=== PATIENT | female | born 1955 | race Caucasian/White ===

== ENCOUNTER 2017-01-11 14:12 | Emergency (ER) | payer MEDICARE ==
--- NOTE | ~2017-01-11 | CR72 ---
[facility] A Service of [facility] RADIOLOGY TEXT RESULTS PATIENT: TYLER ATWOOD LOCATION: [facility] : 53 UNIT #: [id number] AGE: [address]: Jair Selby MD SEX: F ORDER DR: [id number] [facility] [address] [place], [place] [address] [id number] E MR#: [id number] Acc #: [id number] NAME: TYLER ATWOOD : 1955 SEX: F STUDY DATE/TIME: 01/11/2017 12:53 UNIT: DAVIDE ROOM: STUDY DESCRIPTION: CR Chest Single View Portable Attending Physician: Jair Selby M.D. Ordering Physician: Jair Selby M.D. Primary Care Physician: Beatris Garcia M.D. MEDICAL IMAGING REPORT This report is preliminary unless electronic signature is present EXAM AP radiograph of the chest, 01/11/2017. HISTORY Cough and dyspnea. Prior history of breast cancer, right mastectomy, diabetes. Cough and short of air for 2 days. TECHNIQUE AP radiograph of the chest is presented. COMPARISON STUDIES 07/20/2016 FINDINGS No acute-appearing bony abnormality. Mild cardiac enlargement. The lungs are moderately well inflated. Pulmonary vasculature is abnormally prominent and mildly indistinct. There are increased linear interstitial opacities, predominantly in the axg-jf-pjpss lung zones bilaterally with patchy airspace densities at the bilateral lung bases. Suggestion of small left pleural effusion. Findings suggest mild to mild/moderate cardiogenic pulmonary edema with interstitial airspace and left pleural space involvement. Followup to radiographic resolution recommended. Dictated by... Carlos Aguillon M.D. THIS IS AN ELECTRONICALLY VERIFIED REPORT Carlos Aguillon M.D. at 01/11/2017 5:41 PM PARIS/taj [facility] A Service of [facility] RADIOLOGY TEXT RESULTS PATIENT: TYLER ATWOOD LOCATION: [facility] : 53 UNIT #: [id number] AGE: [address]: Jair Selby MD SEX: F ORDER DR: TD: 01/11/2017 15:57 JOB #: [id number] MEDICAL IMAGING REPORT COPY
--- NOTE | ~2017-01-11 | EKG ---
PATIENT: TYLER ATWOOD UNIT #: [id number] Ventricular Rate: 74 BPM Atrial Rate: 74 BPM P-R Interval: 144 ms QRS Duration: 104 ms Q-T Interval: 420 ms QTC Calculation(Bezet): 466 ms P [place]: 29 degrees Calculated R [place]: 37 degrees Calculated T [place]: 39 degrees Diagnosis Line: Normal sinus rhythm Diagnosis Line: Minimal voltage criteria for LVH, may be normal Diagnosis Line: variant Diagnosis Line: Borderline ECG Diagnosis Line: When compared with ECG of 12-DEC-2016 18:10, Diagnosis Line: No significant change was found Diagnosis Line: Confirmed by HARSHA SNOW MD ([id number]) on Diagnosis Line: 01/11/2017 4:16:15 PM INTERPRETING MD: EDY SALCEDO
[2017-01-11 13:17] LABS: BASOPHIL# 0.1 X10e3 (0-0.3); BASOPHIL% 0.8 % (0-2.5); EOSINOPHIL# 0.2 X10e3 (0-0.7); EOSINOPHIL% 1.9 % (0.0-7.0); HEMATOCRIT 35.8 % (35.0-45.0); LYMPHOCYTE% 24.8 % (17.0-45.0); MEAN CELL VOLUME 85.7 FL (83-96); MEAN CORPUSCULAR HEMOGLOBIN 28.7 PG (28-34); MEAN CORPUSCULAR HGB CONC 33.5 g/dL (30-36); MEAN PLATELET VOLUME 8.4 FL (6.5-11.5); MONOCYTE# 0.3 X10e3 (0-1.0); MONOCYTE% 3.8 % (3.0-12.0); NEUTROPHIL# 5.6 X10e3 (1.5-7.1); NEUTROPHIL% 68.7 % (40-75); PLATELET COUNT 256 X10e3 (140-420); RED BLOOD COUNT 4.17 X10e (3.90-5.30); RED CELL DISTRIBUTION WIDTH 13.7 % (11.0-15.5); WHITE BLOOD COUNT 8.1 X10e3 (4.0-10.5)
[2017-01-11 13:22] LABS: DIFF IND NO
[2017-01-11 13:26] LABS: POC - CKMB 1.3 ng/mL (0.0-7.9); POC - TROPONIN <0.05 ng/mL (<=0.05)
[2017-01-11 13:44] LABS: ALBUMIN SERUM 2.8 g/dL (3.5-5.0); ALKALINE PHOSPHATASE 72 U/L (32-92); ALT (SGPT) 12 U/L (10-40); AST (SGOT) 13 U/L (10-42); BILIRUBIN, DIRECT 0.1 mg/dL (0.0-0.2); BILIRUBIN,INDIRECT 0.4 mg/dL (0.0-0.9); BILIRUBIN,TOTAL 0.5 mg/dL (0.2-2.0); BLOOD UREA NITROGEN 22 mg/dL (9-23); CALCIUM SERUM 8.8 mg/dL (8.4-10.2); CARBON DIOXIDE 27 mmol/L (22-31); CHLORIDE 100 mmol/L (100-111); CREATININE SERUM 0.8 mg/dL (0.6-1.4); GLOM FILT RATE Estimated ABOVE60 mL/min (>60); GLUCOSE FASTING 434 mg/dL (70-110); PROTEIN TOTAL SERUM 5.9 g/dL (6.0-8.3); SODIUM 134 mmol/L (135-145)
[~2017-01-11 14:12] MED LIST: ACETAMINOPHEN650 M3 PO; ACIDOPHILUS1 CA1 PO; ALDACTONE25 MG PO; ANASTROZOLE1 MG PO; ANTI-DIARRHEAL2 M1 PO; ASPIRIN EC81 M1 PO; ASPIRIN PO; ASPIRIN81 MG PO; BACTRIM DS TABL1 TA1 PO; BACTROBAN22 GM TOP; BP MED; CLEOCIN PO; CLOPIDOGREL75 MG PO; DAKIN'S MODIF1000 ML TOP; DESYREL50 MG PO; DIFLUCAN200 MG PO; FERRO-TIME325 MG PO; FLEXERIL10 M1 PO; GLUCOPHAGE XR500 MG PO; GLUCOPHAGE500 M1 PO; GLUCOTROL PO; HUMALOG100 U/M1 SUBQ; HUMALOG100 U/ML SUBQ; HYDROCODON-ACE1 EAC7 PO; IBUPROFEN400 MG PO; ILOTYCIN1 GM OD; IRON SUPPLEMENT1 TAB PO; IRON325 ( 65 ) PO; KEFLEX500 M1 PO; KEFLEX500 MG PO; LANTUS100 U/ML SUBQ; LEVAQUIN750 MG PO; LEVEMIR FL100 UNIT/1 SUBQ; LEVO-T25 MCG PO; LEVOTHYROXINE25 MC1 PO; LIPITOR PO; LIPITOR20 MG PO; LIPITOR40 MG PO; LIPITOR80 MG PO; LISINOPRIL10 MG PO; LISINOPRIL20 MG PO; LOTRISONE CREAM45 GM TOP; MED FOR HERPES; METFORMIN HCL500 M3 PO; MEVACOR40 MG PO; NAPROSYN500 MG PO; NORCO 5/325 TAB1 TAB PO; NORCO1 TAB 10/3 PO; NOVOLOG FL100 UNIT/1 SUBQ; NOVOLOG100 U/ML SUBQ; NOVOLOG100 UNITS/; NOVOLOG100 UNITS/ SUBQ; OMNICEF300 M1 PO; PRINIVIL20 M1 PO; PROTONIX PO; SIMVASTATIN20 MG PO; SYNTHROID25 MCG PO; THYROID MED; TYLENOL #3 PO; VICODIN 5/1 TAB 5/50 PO; VIMPAT100 MG PO; ZANTAC150 M1 PO; ZANTAC150 MG PO; ZOFRAN ODT4 MG PO
== END 2017-01-11 15:00 | disposition home or self-care (01) ==
LOC: CED 14:12
PROVIDERS: Emergency Medicine
DX: I10 Essential (primary) hypertension (principal); R73.9 Hyperglycemia, unspecified; Z88.5 Allergy status to narcotic agent; Z88.1 Allergy status to other antibiotic agents; Z79.4 Long term (current) use of insulin; Z79.899 Other long term (current) drug therapy
CPT/HCPCS: 36415; 71010; 80048; 80076; 82553; 83880; 84484; 85025; 93005; 96374; 96375; 99284; J1940

== ENCOUNTER 2017-01-16 01:19 | Inpatient (IN) | payer MEDICARE ==
--- NOTE | ~2017-01-16 | EKG ---
PATIENT: TYLER ATWOOD UNIT #: [id number] Ventricular Rate: 55 BPM Atrial Rate: 55 BPM P-R Interval: 152 ms QRS Duration: 100 ms Q-T Interval: 468 ms QTC Calculation(Bezet): 447 ms P [place]: 13 degrees Calculated R [place]: 51 degrees Calculated T [place]: 56 degrees Diagnosis Line: Sinus bradycardia Diagnosis Line: Otherwise normal ECG Diagnosis Line: When compared with ECG of 24-JAN-2017 10:15, Diagnosis Line: No significant change was found Diagnosis Line: Confirmed by ELIDA GRIMALDO MD ([id number]) on 01/28/2017 Diagnosis Line: 7:32:08 AM INTERPRETING MD: RE SALCEDO
--- NOTE | ~2017-01-16 | US77 ---
[facility] A Service of [facility] RADIOLOGY TEXT RESULTS PATIENT: TYLER ATWOOD LOCATION: [facility] 318- : 53 UNIT #: [id number] AGE: [address]: Igor Brojas MD SEX: F ORDER DR: [id number] [place] [id number] [facility] [place], [place] [address] [id number] I MR#: [id number] Acc #: [id number] NAME: TYLER ATWOOD : 1955 SEX: F STUDY DATE/TIME: 01/20/2017 10:33 UNIT: [facility] PCU ROOM: [facility] STUDY DESCRIPTION: US Kidney Bilateral Complete Attending Physician: Igor Borjas M.D. Ordering Physician: Jaleel Ovalle M.D. Primary Care Physician: Beatris Garcia M.D. MEDICAL IMAGING REPORT This report is preliminary unless electronic signature is present EXAM Renal ultrasound, bilateral, 01/20/2017. INDICATION Renal insufficiency. Acute renal injury. GFR 25, creatinine 2.1, BUN 47. TECHNIQUE Sonographic imaging of the kidneys was performed bilaterally. COMPARISON STUDIES There are no comparisons. FINDINGS The right kidney measures 13.6 x 5.7 x 7.3 cm and the left 12.8 x 6.3 x 6.1 cm. No shadowing stone or hydronephrosis on either side. Limited sonographic window to evaluate the left kidney. Bladder unremarkable. IMPRESSION No hydronephrosis or shadowing stone on either side. Bladder unremarkable. Dictated by... Alex Messer M.D. THIS IS AN ELECTRONICALLY VERIFIED REPORT Alex Messer M.D. at 01/21/2017 7:34 AM ALAM/taj TD: 01/20/2017 16:35 JOB #: [id number] MEDICAL IMAGING REPORT [facility] A Service of [facility] RADIOLOGY TEXT RESULTS PATIENT: TYLER ATWOOD LOCATION: [facility] 318- : 53 UNIT #: [id number] AGE: [address]: Igor Borjas MD SEX: F ORDER DR: CARLY
--- NOTE | ~2017-01-16 | DS ---
Unit #: [id number] #: [id number] Patient: TYLER ATWOOD [id number] [address] [place], [place] [address] [id number] I MR#: [id number] NAME: TYLER ATWOOD ROOM: 57 Age: 61 Sex: F Admission Date: 01/16/2017 : 1955 Discharge Date: Attending Physician: Igor Borjas M.D. Primary Care Physician: Beatris Garcia M.D. DISCHARGE SUMMARY ADDENDUM PRIMARY CARE PHYSICIAN Dr. Chandni Garcia. WORKING DIAGNOSIS Hypoxic respiratory failure continued with oxygen support likely due to chronic obstructive pulmonary disease exacerbation and tracheobronchitis as well as cardiomyopathy. HOSPITAL COURSE Since the time of the transfer care, the patient has had left heart catheterization by Dr. Ovalle with 2 drug-eluting stents placed for an ischemic cardiomyopathy. The patient's ejection fraction is noted to be 38%. The patient will be continued on dual antiplatelet with both aspirin and Plavix as well as statin, nitrate, beta jennifer. The patient is a not candidate for ASHWIN ARB at this time due to her kidney function. Since her heart cath, her kidney function has stabilized. At the time of discharge, her creatinine was 2.3. She was cleared by Cardiology, Nephrology, and Pulmonary to be discharged home. The patient will be discharged home with her daughter in stable condition. We will be asking case work aide to arrange for outpatient cardiac rehab. The patient will have A home health to have any nursing needs and for diabetes education. DISCHARGE DIET Heart healthy with consistent carb per [place] [employer] Recommendations. ACTIVITIES Resume activity as was prior to hospitalization with ambulating everyday as tolerated. We are assessing to see if patient needs and will be setting up if needed for oxygen home usage. FOLLOWUP To followup with primary care physician within 1 to 2 weeks. Follow up with Dr. Ovalle on Tuesday02/21/2017 at 2:30. Follow up with Dr. Del Castillo of Nephrology to arrange the outpatient visit. Follow up with primary care physician within 1 to 2 weeks with a repeat BMP to assess her kidney function. DISCHARGE MEDICATIONS Include Vimpat 100 mg orally b.i.d., Glucophage she can resume this on Unit #: [id number] #: [id number] Patient: TYLER ATWOOD 01/28/2017 of 500 mg orally b.i.d., loperamide 2 mg orally b.i.d. as needed for diarrhea, Lopressor tartrate 50 mg orally b.i.d., Lasix 40 mg orally daily per Nephrology and Cardiology recommendation, atorvastatin 80 mg orally at bedtime, hydralazine 50 mg orally b.i.d. She is to stop the lisinopril 20 mg orally daily. Her Humalog is changed to 25 units subcutaneously with meal as well as a low-dose sliding scale insulin. She is to continue with Lantus 55 units subcutaneously at bedtime, iron supplement 325 mg orally daily, Zantac 150 mg orally b.i.d., aspirin 81 mg orally daily, Plavix 75 mg orally daily, Glucotrol 5 mg orally b.i.d. with meals, levothyroxine 25 mcg orally daily, Imdur extended release 30 mg orally daily. The patient had a random urine culture obtained which had grown Staph coagulase sensitive to vancomycin, one time dose was given, given her current kidney function, presumed that this will be able to fully treat her Staph coagulase UTI. Dictated by... Varsha Antonio PA-C for Chidi Bello/deana TD: 01/27/2017 08:29 JOB #: [id number] DISCHARGE SUMMARY Page 1 of 1 X X DISCHARGE SUMMARY
--- NOTE | ~2017-01-16 | CR72 ---
[facility] A Service of [facility] RADIOLOGY TEXT RESULTS PATIENT: TYLER ATWOOD LOCATION: [facility] 318-01 : 53 UNIT #: [id number] AGE: [address]: Bess Bhatti MD SEX: F ORDER DR: [id number] [facility] [address] [place], [place] [address] [id number] E MR#: [id number] Acc #: [id number] NAME: TYLER ATWOOD : 1955 SEX: F STUDY DATE/TIME: 01/16/2017 1:18 UNIT: [facility] ROOM: STUDY DESCRIPTION: CR Chest Single View Portable Attending Physician: Dulce Maria Fox M.D. Ordering Physician: Dulce Maria Fox M.D. Primary Care Physician: Beatris Garcia M.D. MEDICAL IMAGING REPORT This report is preliminary unless electronic signature is present EXAM AP portable chest, 01/16/2017 at 01:18. HISTORY Shortness of breath today. COMPARISON STUDIES AP portable chest, 01/11/2017. FINDINGS Heart size is stable. Interstitial thickening is seen throughout both lungs, greatest in the bibasilar distribution, similar to the previous exam. Questionable trace left pleural effusion. No visible pneumothorax. No acute osseous abnormality. IMPRESSION 1. Interstitial changes throughout both lungs, greatest in a bibasilar distribution. Findings are nonspecific; could represent changes of interstitial edema, fibrosis, or atypical interstitial pneumonia. Findings to not appear appreciably changed from the previous exam. 2. Probable trace left pleural effusions, unchanged. Dictated by... Marva Brower M.D. THIS IS AN ELECTRONICALLY VERIFIED REPORT Marva Brower M.D. at 01/16/2017 9:57 PM DAMIEN/gabriela TD: 01/16/2017 11:38 JOB #: [id number] [facility] A Service [facility] RADIOLOGY TEXT RESULTS PATIENT: TYLER ATWOOD [id number] [birth year] UNIT #: [id number] AGE: [address]: Bess Bhatti MD SEX: F ORDER DR: MEDICAL IMAGING REPORT COPY
--- NOTE | ~2017-01-16 | A ---
[facility] DATE: 01/28/17 Patient: TYLER ATWOOD Physician: HARVINDER Address: [address] [place] [address] Room/Bed: [address] [place] [address], Zip: [place] [address] Admit Date: 01/16/17 Date of : 51 Height: 5 2 Weight: 182 83 NUTRITIONAL ASSESSMENT: REASON: LOS ASSESSMENT PT IS 61 Y.O. FEMALE ADMITTED FOR CHF, PNA, POSS SEPSIS PMH: PRIOR CVA, HTN, HLD, HYPOTHYROIDISM, UNCONTROLLED DM, DEMENTIA, HX OF BREAST CA, GERD, SEIZURE DISORDER Anthropometrics: 5'2", WT: 182# (83 KG), BMI: 33.3 Labs: GLU: 185, BUN: 54, CREAT: 2.0, ALB: 2.4, ALT: 55, A1c: 14.0 (REFLECTS POOR GLUCOSE MANAGEMENT), GFR: 25.9 Meds: LIPITOR, FUROSEMIDE, ZOFRAN, NOVOLOG, PEPCID, MIRALAX, LANTUS, FERROUS GLUCONATE, GLUCOTROL, SYNTHROID I/O & Bowel function: 1600/307 Skin Integrity: BLE TRACE EDEMA Estimated Nutrition Needs: N/A Assessment: CHART REVIEWED AND EVENTS NOTED. PT SEEN FOR LENGTH OF STAY ASSESSMENT (10 DAYS). PT REPORTS GOOD PO INTAKE AND APPETITE, NO C/O N/V/D. PT DENIES ANY CHEWING OR SWALLOWING DIFFICULTIES. PT DOES C/O SOB AT THIS TIME. PT DENIED ANY RECENT WEIGHT LOSS. THIS RD ENCOURAGED OVERALL HEALTHY EATING PATTERNS, PT AGREED. RD ALSO PROVIDED WRITTEN CC+HH DIET EDUCATION FOR PT TO TAKE HOME. PT REPORTED NO DIET QUESTIONS AT THIS TIME. RD TO REMAIN AVAILABLE. Dx: IMPAIRED GLYCEMIC CONTROL R/T PMH AEB ELEVATED BLOOD SUGAR LEVELS, ELEVATED A1c. Intervention: 1. CC+HH DIET 2. RD PROVIDED DIET EDUCATION Monitoring, Evaluation and Goals: 1. PO INTAKE; CONSUME >50% PO INTAKE W/NO C/O N/V/D 2. WEIGHTS; PROMOTE HEALTHY WEIGHT LOSS 3. LABS; WNL MONITOR: -PO INTAKE/APPETITE -EDUCATION NEEDS [facility] DATE: 01/28/17 Patient: TYLER ATWOOD Physician: HARVINDER Address: [address] [place] [address] Room/Bed: [address] [place] [address], Zip: [place] [address] Admit Date: 01/16/17 Date of : [birth year] Height: 5 2 Weight: 182 83 -LABS -WEIGHTS Recommendations: 1. CONTINUE TO ENCOURAGE COMPLIANCE OF CURRENT DIET ORDER RD WILL F/U PER PROTOCOL PT IS MILDLY COMPROMISED Respectfully, KATELIN ARAGON MS, RD, LD [employer] and Nutritional Services [facility] cc: client file
--- NOTE | ~2017-01-16 | CT71 ---
[facility] A Service of [facility] RADIOLOGY TEXT RESULTS PATIENT: TYLER ATWOOD LOCATION: [facility] 571-01 : 53 UNIT #: [id number] AGE: [address]: Igor Borjas MD SEX: F ORDER DR: [id number] [facility] [address] [place], [place] [address] [id number] I MR#: [id number] #: [id number] NAME: TYLER ATWOOD : 1955 SEX: F STUDY DATE/TIME: 01/26/2017 18:45 UNIT: [facility] ROOM: 1 STUDY DESCRIPTION: CT Head Wo Contrast Attending Physician: Igor Borjas M.D. Ordering Physician: Igor Borjas M.D. Primary Care Physician: Beatris Garcia M.D. MEDICAL IMAGING REPORT This report is preliminary unless electronic signature is present EXAM CT head, 01/26/2017 HISTORY Mental status change. Confusion today. Prior hernia CVA 2013. Depression, breast cancer, right mastectomy, gallbladder. Bladder repair. TECHNIQUE This CT exam was performed with one or more of the following radiation dose reduction techniques: automatic exposure control, adjustment of mA and/or kV according to patient size, and iterative reconstruction. FINDINGS CT head performed skull base through vertex without intravenous contrast. Comparison to MRI dated 11/23/[address] head 10/12/2016. The brainstem is unremarkable. Cerebellum and cerebral hemispheres show encephalomalacic change in the medial left temporal lobe extending posteriorly into the left occipital lobe. No change in extent or appearance from October 2016 and consistent with old left posterior cerebral artery infarct. No hemorrhage. No indication of acute cortical ischemia. Periventricular and deep white matter tract hypodensities likely reflecting sequelae of chronic microvascular ischemia. No change. The midline structures are nondisplaced. In the interval from the prior examination, the patient has developed what is a now chronic-appearing lacunar infarct in the inferior right putamen. It measures about 4 mm in diameter. Midline structures are nondisplaced. Ventricles, cisterns and sulci outside area of encephalomalacia described above appear mildly enlarged consistent with mild generalized atrophy. Stable appearance. There are cavernous carotid and distal vertebral arterial calcifications. The intraorbital soft tissues are unremarkable. There is no intracranial mass effect or suspicious fluid collection. The visualized paranasal sinuses and mastoid air cells are clear. No acute-appearing bony STS. [facility] A Service of [facility] RADIOLOGY TEXT RESULTS PATIENT: TYLER ATWOOD LOCATION: [facility] : 53 UNIT #: [id number] AGE: [address]: Igor Borjas MD SEX: F ORDER DR: abnormality. Some images are degraded by streak/motion artifact. IMPRESSION 1. Study is mildly degraded by streak/motion artifact. No acute abnormality is seen in the brain. If the patient has ongoing neurologic symptoms, consider followup imaging, preferably with MRI if the patient remains a candidate for MRI. 2. Chronic sequelae of prior vascular insult in left posterior cerebral artery distribution with encephalomalacic change involving left temporal and occipital lobes as described above. No change from prior study. 3. In the interval from October 2016 the patient has developed what is now a chronic-appearing 4 mm lacunar infarct in the inferior right putamen. No acute-appearing basal ganglia abnormality. 4. Stable mild generalized atrophy. 5. Stable periventricular and deep white matter tract probable sequelae of chronic microvascular ischemia. See remainder of details in body report above. Dictated by... Carlos Aguillon M.D. THIS IS AN ELECTRONICALLY VERIFIED REPORT Carlos Aguillon M.D. at 01/28/2017 8:06 PM PARIS/britton TD: 01/27/2017 03:23 JOB #: [id number] MEDICAL IMAGING REPORT Page 1 of 1 COPY
--- NOTE | ~2017-01-16 | ST ---
Unit #: [id number] #: [id number] Patient: TYLER ATWOOD [id number] [address] [address] [id number] I MR#: [id number] NAME: TYLER ATWOOD : 1955 SEX: F STUDY DATE/TIME: 01/20/2017 UNIT: C3A PCU ROOM: 318 STUDY DESCRIPTION: Stress Test Attending Physician: Igor Borjas M.D. Primary Care Physician: Beatris Gacria M.D. CARDIOLOGY REPORT EXAM Dobutamine Nuclear Stress Test REASON FOR TEST Chest pain. DESCRIPTION Baseline EKG shows normal sinus rhythm, rate of 68 beats per minute. Nonspecific T wave abnormalities noted in the inferior leads. A total of 29.68 mL of dobutamine was given IV per protocol with a resting heart rate of 68 beats/minute and a peak heart rate of 127 beats/minute. There were no ST or T wave changes noted during the infusion. During the infusion, the patient did complain of some mild chest discomfort as well as shortness of breath. These symptoms resolved in the recovery period. A rare PVC was noted during the infusion. Otherwise, no arrhythmias. The test was stopped after approximately 28 minutes. Patient only achieved 80% of the maximum predicted heart rate. She had also received maximum dose of dobutamine 40 mcg/kg/minute as well as 0.8 mg of atropine IV and we were still unable to achieve target heart rate. IMPRESSION 1. Negative EKG portion of dobutamine Cardiolite. 2. No ST or T wave changes suggestive of ischemia during the infusion. 3. Rare PVC was noted, otherwise no arrhythmias. 4. Patient did complain of mild chest discomfort as well as shortness of breath during the infusion. These symptoms resolved immediately in recovery period. Please note - total test time was approximately 28 minutes. She was om maximum dosing of dobutamine at 40 mcg/kg/minute and had already received 0.8 mg of IV atropine. With still inability to meet target heart rate, 80% was achieved. Dr. Ovalle was notified and stated it was okay to go ahead and inject at the 80%. 5. Please correlate with nuclear imaging. This was explained to the patient and she was agreeable. Please note - she also had significant anxiety throughout the testing period. Unit #: [id number] #: [id number] Patient: TYLER ATWOOD Dictated by... Ginger Miller A.P.R.N. for Chidi Davalos/df TD: 01/20/2017 11:46 JOB #: [id number] CARDIOLOGY REPORT X Ginger Miller APRN CARDIOLOGY REPORT
--- NOTE | ~2017-01-16 | CO ---
Unit #: [id number] #: [id number] Patient: TYLER ATWOOD [id number] [address] [place], [place] [address] [id number] I MR#: [id number] NAME: TYLER ATWOOD ROOM: 318 Age: 61 Sex: F Admission Date: 01/16/2017 : 1955 Attending Physician: Igor Borjas M.D. Primary Care Physician: Beatris Garcia M.D. Consultation Date: 01/20/2017 CONSULTATION REPORT REASON FOR CONSULTATION Elevated creatinine level. HISTORY OF PRESENT ILLNESS The patient is a 61-year-old white female with known history of hypertension, type 2 diabetes, history of left CVA with right hemiparesis, came in with shortness of breath and admitted for a possible pneumonia, for which the patient was started on vancomycin. At one point, vancomycin level was noted to be 30. The patient also noted to be on Prinivil. The patient's creatinine level on admission was 0.7, and is elevated to 2.1 today. The patient is also being seen by Cardiology and heart catheterization is being contemplated for cardiac workup. The patient has not noted to be on any NSAIDs or recent IV contrast. PAST MEDICAL HISTORY Significant for coronary artery disease nonobstructive in 2014, ejection fraction was 55% with RVSP of 27 mmHg. History of type 2 diabetes, history of breast cancer, hypertension, hypothyroidism, history of seizure disorder. PAST SURGICAL HISTORY Significant for I and D of gluteal abscess, history of skin grafting, status post cholecystectomy, right mastectomy with breast surgery. ALLERGIES As per H and P. MEDICATIONS Include Prinivil 20 mg daily, Aldactone 25 mg daily. Previously Glucophage, Zantac, Vimpat for seizure disorder, Glucotrol, Lantus 55 units at bedtime, and Plavix 75 mg daily. FAMILY HISTORY Significant for hypertension, type 2 diabetes, coronary artery disease. No history of end-stage renal disease. SOCIAL HISTORY Lives at home. Does not drink or smoke. REVIEW OF SYSTEMS CVS: As above. RESPIRATORY: As above. GI: No diarrhea. No vomiting. : No hematuria. No dysuria. Unit #: [id number] #: [id number] Patient: TYLER ATWOOD PHYSICAL EXAMINATION GENERAL: The patient is awake and has mild dysphagia. VITAL SIGNS: Temperature is 97.9, heart rate is 77 per minute, the blood pressure is 144/76, saturation 95% on admission. HEENT: Head is atraumatic. Extraocular movements are intact. Sclerae are anicteric. NECK: Supple. There is no elevation of the JVD. CHEST: Basal crackles in the bases. HEART: S1, S2 audible. There is no S3 no S4. ABDOMEN: Soft. There is no organomegaly. No guarding. No rigidity. No rebound tenderness. EXTREMITIES: There is 1+ edema. TRIPE FINISHER: Right hemiparesis. Cerebellar system is intact. DIAGNOSTIC STUDIES LABORATORY RESULTS: Significant for sodium 137, potassium 4.5, chloride 103, CO2 of 26, glucose 241, BUN 31, creatinine 1.9 yesterday and 2.1 today. The WBC is 12, H and H is 9.9 and 30.6 with a platelet count of 300. The urinalysis is 3+ protein with 2 to 5 wbc, rbc. Urine eosinophils are negative. IMPRESSION 1. Acute kidney injury, possible vancomycin toxicity exacerbated by concomitant Prinivil. Vancomycin has been discontinued. We will request to refrain from nephrotoxics. Check for diabetic nephropathy and quantitate proteinuria. Request renal ultrasound for any evidence of obstruction. We will hold cardiac catheterization at this point, until the renal function stabilizes. The renal function could worse in the 1 to 2 days before stabilization. Would hold the cardiac catheterization until Tuesday. 2. Would request to refrain from nephrotoxics and IV contrast in that interim. Volume is mildly expanded, we will start diuresis in 1 to 2 days. 3. Chronic kidney disease likely underlying diabetic nephropathy with stage 2 chronic kidney disease. We will monitor and establish the underlying baseline kidney function. 4. Coronary artery disease. Workup in progress. 5. Hypertension. 6. Diabetes. 7. Status post cerebrovascular accident. Dictated by... Jean Del Castillo M.D. RA/deana TD: 01/21/2017 02:54 JOB #: [id number] Unit #: [id number] #: [id number] Patient: TYLER ATWOOD CONSULTATION REPORT X Abundio,Jean SALCEDO X CONSULTATION REPORT
--- NOTE | ~2017-01-16 | CO ---
Unit #: [id number] #: [id number] Patient: TYLER ATWOOD [id number] [address] [address] [id number] I MR#: [id number] NAME: TYLER ATWOOD ROOM: 00822 Age: 61 Sex: F Admission Date: 01/16/2017 : 1955 Attending Physician: Bess Bhatti M.D. Primary Care Physician: Beatris Garcia M.D. Consultation Date: 01/16/2017 CONSULTATION REPORT REASON FOR CONSULTATION Pneumonia, sepsis. CHIEF COMPLAINT Shortness of breath. HISTORY OF PRESENT ILLNESS This patient presented to the emergency room with the complaint of shortness of breath for the last two to three days. The symptom has been getting worse. I am seeing the patient at the bedside. She is complaining of shortness of breath and increasing sputum production. She was saturating 80% on room air and was placed nonrebreather. Her oxygen saturation got better. She is complaining of cough and increasing sputum production. She denies any nausea, vomiting, or diarrhea. REVIEW OF SYSTEMS Positive for pallor. No edema, no cyanosis, and no jaundice. PAST MEDICAL HISTORY 1. Stroke. 2. Episode of confusion. 3. Nonobstructive coronary artery disease. 4. Breast cancer. 5. Hypertension. 6. Dyslipidemia. 7. Gastroesophageal reflux disease. 8. Bladder repair. 9. Open cholecystectomy. 10. Extensive lumbar spine surgery. 11. Skin grafting. 12. Right mastectomy. ALLERGIES LIVER OIL, PHENYLEPHRINE, MERCURY SALT, MINERAL OIL, PETROLEUM. MEDICATIONS As per MAR and have been reviewed. PHYSICAL EXAMINATION VITAL SIGNS: Temperature is 98, pulse 70, respirations 16, and blood pressure 123/77. NEUROLOGICAL: Awake, alert, and oriented, with no neurological deficits. HEENT: Pupils equal, round, and reactive to light and accommodation. Extraocular movements are intact. Unit #: [id number] #: [id number] Patient: TYLER ATWOOD NECK: Supple. No JVD. CHEST: Bilateral air entry, bilateral mild rhonchi. GASTROINTESTINAL: Nontender and soft. Bowel sounds positive. EXTREMITIES: No edema. SKIN: No rashes and no ulcers. LYMPHATICS: No lymphadenopathy. DIAGNOSTIC STUDIES LABORATORY: Lactic acid 3.1. White count 12, hemoglobin 11, hematocrit 37, and platelet count is 340,000. IMAGING: Chest x-ray pending. ASSESSMENT 1. Pneumonia. 2. Sepsis. 3. Hyperglycemia. 4. Lactic acidosis. 5. Hypertension. 6. Diabetes mellitus. 7. Likely obstructive sleep apnea. PLAN Get a noncontrast CT of the chest. Continue oxygen, bronchodilator, and GI and DVT prophylaxis. Continue patient on current antibiotics. Patient will be closely monitored. Please see orders for detailed plans. Thank you very much for this consultation. We will continue to follow. Dictated by... Chidi Lance TD: 01/16/2017 15:01 JOB #: [id number] CONSULTATION REPORT X Sera Wood MD CONSULTATION REPORT
--- NOTE | ~2017-01-16 | EKG ---
PATIENT: TYLER ATWOOD UNIT #: [id number] Ventricular Rate: 80 BPM Atrial Rate: 80 BPM P-R Interval: 110 ms QRS Duration: 104 ms Q-T Interval: 396 ms QTC Calculation(Bezet): 456 ms P [place]: 56 degrees Calculated R [place]: 47 degrees Calculated T [place]: 3 degrees Diagnosis Line: Sinus rhythm with short AK Diagnosis Line: Moderate voltage criteria for LVH, may be normal Diagnosis Line: variant Diagnosis Line: Borderline ECG Diagnosis Line: When compared with ECG of 16-JAN-2017 01:19, Diagnosis Line: AK interval has decreased Diagnosis Line: Nonspecific T wave abnormality now evident in Diagnosis Line: Inferior leads Diagnosis Line: Confirmed by ELIDA GRIMALDO MD ([id number]) on 01/19/2017 Diagnosis Line: 10:00:58 PM INTERPRETING MD: RE SALCEDO
--- NOTE | ~2017-01-16 | TH ---
Unit #: [id number] #: [id number] Patient: TYLER ATWOOD [id number] [address] [address] [id number] I MR#: [id number] NAME: TYLER ATWOOD : 1955 SEX: F STUDY DATE/TIME: UNIT: C3A PCU ROOM: [facility] STUDY DESCRIPTION: Nuclear Study Attending Physician: Igor Borjas M.D. Primary Care Physician: Beatris Garcia M.D. CARDIOLOGY REPORT EXAM Dobutamine Cardiolite Stress Test - Nuclear Portion DESCRIPTION Using technetium 99m labeled Cardiolite, rest and stress SPECT images were obtained. Multiple SPECT images were obtained in various views including horizontal and vertical long axis and short axis views of the left ventricle. Images were obtained by gated SPECT method. The patient was administered 11.98 mCi of Cardiolite at rest. The patient was administered 34.6 mCi of Cardiolite at peak dobutamine infusion. On the stress images, there is a medium size area of moderate decreased isotope activity inferiorly. The rest images show normal perfusion. Comparing rest and stress images, a moderate size area of stress-induced ischemia involving the inferior wall of the left ventricle is suspected. The left ventricular ejection fraction is calculated to be 38%. There is global hypokinesis seen. The technical quality of the images is poor because of patient's body habitus and increased gut uptake. CONCLUSION 1. Suspicion for possible stress-induced ischemia involving the inferior wall of the left ventricle. 2. The left ventricular ejection fraction is calculated to be 38%. 3. There is global hypokinesis seen. 4. The left ventricular cavity is mild to moderately dilated, both at rest and post stress. 5. Abnormal dobutamine Cardiolite stress test. 6. It must be noted that the technical quality of the images was poor because of patient's body habitus as well as increased gut uptake. Clinical correlation is requested. Dictated by... Chidi Davalos TD: 01/20/2017 13:18 JOB #: [id number] Unit #: [id number] #: [id number] Patient: TYLER ATWOOD CARDIOLOGY REPORT X Whitney Carson MD <ELECTRONICALLY SIGNED> 05/28/17 1429 CARDIOLOGY REPORT
--- NOTE | ~2017-01-16 | CT57 ---
[facility] A Service of [facility] RADIOLOGY TEXT RESULTS PATIENT: TYLER ATWOOD LOCATION: [facility] : [birth year] UNIT #: [id number] AGE: [address]: Igor Borjas MD SEX: F ORDER DR: [id number] [facility] [address]. [place], [place] [address] [id number] I MR#: [id number] Acc #: [id number] NAME: TYLER ATWOOD : 1955 SEX: F STUDY DATE/TIME: 01/16/2017 15:06 UNIT: [address] ROOM: 318 STUDY DESCRIPTION: CT Chest Wo Cont Attending Physician: Bess Bhatti M.D. Ordering Physician: Bess Bhatti M.D. Primary Care Physician: Beatris Garcia M.D. MEDICAL IMAGING REPORT This report is preliminary unless electronic signature is present EXAM CT scan of the chest without contrast, 01/16/2017 HISTORY Shortness breath and cough for 2 days. Hypertension. Breast carcinoma and right mastectomy. TECHNIQUE Spiral CT was performed through the chest without intravenous contrast administration as per clinician request. This CT exam was performed with one or more of the following radiation dose reduction techniques: automatic exposure control, adjustment of mA and/or kV according to patient size, and iterative reconstruction. FINDINGS There are moderate bilateral pleural effusions with bibasilar atelectasis. The upper lungs are clear. There is no significant thoracic adenopathy. Heart is normal in size but there is coronary artery calcification. Recommend clinical correlation for coronary artery disease. Images of the upper abdomen are normal. IMPRESSION Moderate bilateral pleural effusions with bibasilar compressive atelectasis. Dictated by... Bg Page M.D. THIS IS AN ELECTRONICALLY VERIFIED REPORT [facility] A Service of [facility] RADIOLOGY TEXT RESULTS PATIENT: TYLER ATWOOD LOCATION: [facility] : [birth year] UNIT #: [id number] AGE: [address]: Igor Borjas MD SEX: F ORDER DR: Bg Page M.D. at 01/17/2017 10:49 AM JUSTYNA/britton TD: 01/16/2017 22:47 JOB #: [id number] MEDICAL IMAGING REPORT COPY
--- NOTE | ~2017-01-16 | CR72 ---
[facility] A Service of [facility] RADIOLOGY TEXT RESULTS PATIENT: TYLER ATWOOD LOCATION: [place] [address] : [birth year] UNIT #: [id number] AGE: [address]: Igor Borjas MD SEX: F ORDER DR: [id number] [facility] [address] [place], [place] [address] [id number] I MR#: [id number] Acc #: [id number] NAME: TYLER ATWOOD : 1955 SEX: F STUDY DATE/TIME: 01/20/2017 14:43 UNIT: C3A PCU ROOM: [facility] STUDY DESCRIPTION: CR Chest Single View Portable Attending Physician: Igor Borjas M.D. Ordering Physician: Igor Borjas M.D. Primary Care Physician: Beatris Garcia M.D. MEDICAL IMAGING REPORT This report is preliminary unless electronic signature is present EXAM Portable chest, 01/20 INDICATION Shortness of air. Hypertension. History of breast cancer. Symptoms for about 6 days. FINDINGS AP portable chest compared with 01/16/2017. Cardiomegaly is stable. There are small bilateral pleural effusions. There is increased infiltrate or atelectasis in the right base with stable infiltrate or atelectasis in the left base. No pneumothorax. Patient has an azygos lobe. IMPRESSION Stable cardiomegaly with small bilateral pleural effusions. Increased atelectasis or infiltrate noted in the right lung base with stable mild atelectasis or infiltrate at the left base. Dictated by... Carlso Foster Jr., M.D. THIS IS AN ELECTRONICALLY VERIFIED REPORT Carlos Foster Jr., M.D. at 01/24/2017 2:23 PM LV/britton TD: 01/20/2017 22:17 JOB #: [id number] MEDICAL IMAGING REPORT Page 1 of 1 COPY
--- NOTE | ~2017-01-16 | NM69 ---
[facility] A Service [facility] RADIOLOGY TEXT RESULTS PATIENT: TYLER ATWOOD LOCATION: [facility] 571-01 : [birth year] UNIT #: [id number] AGE: [address]: Igor Borjas MD SEX: F ORDER DR: [id number] [facility] [address] [place], [place] [address] [id number] I MR#: [id number] Acc #: [id number] NAME: TYLER ATWOOD : 1955 SEX: F STUDY DATE/TIME: 01/27/2017 15:04 UNIT: [facility] ROOM: [facility] STUDY DESCRIPTION: NM Pulm Vent and Perf Attending Physician: Igor Borjas M.D. Ordering Physician: Whitney Carson M.D. Primary Care Physician: Beatris Garcia M.D. MEDICAL IMAGING REPORT This report is preliminary unless electronic signature is present EXAM Ventilation-perfusion scan. INDICATION Shortness of breath. Patient is unable to lie flat. She does not feel well. Patient's symptoms started a few days ago. COMPARISON STUDIES Comparison is made to this patient's PA and lateral chest radiograph from yesterday evening at 8:41 p.m. TECHNIQUE Patient was administered 34.9 mCi of technetium 99m DTPA and 6 mCi of technetium 99m MAA particles and multiple images were obtained in multiple obliquities over the thorax. FINDINGS The patient's PA and lateral chest radiograph from yesterday showed cardiomegaly and vascular congestion, as well as bilateral pleural effusions right greater than left. On today's study, the patient does not have any convincing evidence of ventilation-perfusion mismatch to suggest acute pulmonary thromboembolus IMPRESSION Low probability V/Q scan. Dictated by... Desiree James M.D. THIS IS AN ELECTRONICALLY VERIFIED REPORT Desiree James M.D. at 01/27/2017 4:38 PM [facility] A Service [facility] RADIOLOGY TEXT RESULTS PATIENT: TYLER ATWOOD LOCATION: [facility] 571-01 : [birth year] UNIT #: [id number] AGE: [address]: Igor Borjas MD SEX: F ORDER DR: ESTEPHANIE/taj TD: 01/27/2017 16:24 JOB #: [id number] MEDICAL IMAGING REPORT Page 1 of 1 COPY
--- NOTE | ~2017-01-16 | DS ---
Unit #: [id number] #: [id number] Patient: TYLER ATWOOD [id number] [address] [place], [place] [address] [id number] I MR#: [id number] NAME: TYLER ATWOOD ROOM: 57 Age: 61 Sex: F Admission Date: 01/16/2017 : 1955 Discharge Date: 01/28/2017 Attending Physician: Igor Borjas M.D. Primary Care Physician: Beatris Garcia M.D. DISCHARGE SUMMARY ADDENDUM Varsha Antonio PA-C, dictating for Dr. Igor Borjas M.D. PRIMARY CARE PHYSICIAN Beatris Garcia M.D. Since the time of discharge, the patient have had symptoms of was believed to be altered mental status. Head CT was done, which was unremarkable. We have stopped her morphine as well as her Percocet and her Ativan at that time for the altered mental status. A reassessment in the morning, there was difficulty after-hour, after she was discharged. Reassessment shows a patient was not altered and she had some anxiety, but she did have symptoms of shortness of breath. Chest x-ray was done that had revealed worsening of pleural effusion. Cardiology had seen her and they recommended a V/Q scan to rule out pulmonary embolism. V/Q scan revealed that she has a low probability of pulmonary embolism. CT scan without contrast did show that the patient does have bilateral pleural effusion with associated bilateral lower lobe passive atelectasis. The pleural effusion have enlarged slightly compared to that done on 01/16/2017. The patient is not hypoxic at this time at her last assessment for home O2 usage, her saturation was 92% to 93% with ambulating on room air. I believe that the patient is severely anxious. Each time oxygen was taken off, she would tell us that she has symptoms of dyspnea and would hyperventilate and so oxygen is put back on again, so the patient many times that she currently does not qualify for home oxygen and I would not be able to discharge her with it. We will be starting the patient on Zoloft 50 mg orally daily for her anxiety disorder and she will be described Ativan 0.5 mg orally t.i.d. as needed for anxiety, prescription was given for 15. DISCHARGE CONDITION At this time, discharge condition is stable. DISCHARGE MEDICATIONS With addition to everything that had listed above, we are adding Ativan 0.5 mg orally t.i.d. as needed for anxiety; Zoloft 50 mg orally daily at bedtime, prescription for 30 was given; albuterol 0.63 mg inhaled q.i.d. as needed for wheezing and/or dyspnea. The patient did ask me if she could be discharged to rehab, but the patient has been ambulating well with physical therapy and they thought that she does not need subacute rehab. Therefore, it is not possible per Unit #: [id number] #: [id number] Patient: TYLER ATWOOD her request. The patient is severely anxious and I would hope that starting the Zoloft as well as the as needed Ativan would help with her symptoms. This dictation did take greater than 40 minutes to include the patient's education to coordinate care. Dictated by... Varsha Antonio PA-C for Chidi Bello/deana TD: 01/29/2017 07:49 JOB #: [id number] DISCHARGE SUMMARY Page 1 of 1 X X DISCHARGE SUMMARY
--- NOTE | ~2017-01-16 | EKG ---
PATIENT: TYLER ATWOOD UNIT #: [id number] Ventricular Rate: 53 BPM Atrial Rate: 53 BPM P-R Interval: 144 ms QRS Duration: 104 ms Q-T Interval: 486 ms QTC Calculation(Bezet): 456 ms P [place]: 20 degrees Calculated R [place]: 69 degrees Calculated T [place]: 42 degrees Diagnosis Line: Sinus bradycardia Diagnosis Line: Otherwise normal ECG Diagnosis Line: Diagnosis Line: Confirmed by ELIDA GRIMALDO MD ([id number]) on 01/25/2017 Diagnosis Line: 4:50:34 AM INTERPRETING MD: RE SALCEDO
--- NOTE | ~2017-01-16 | CT57 ---
[facility] A Service of [facility] RADIOLOGY TEXT RESULTS PATIENT: TYLER ATWOOD LOCATION: [facility] : [birth year] UNIT #: [id number] AGE: [address]: Igor Borjas MD SEX: F ORDER DR: [id number] [facility] [address] [place], [place] [address] [id number] I MR#: [id number] Acc #: [id number] NAME: TYLER ATWOOD : 1955 SEX: F STUDY DATE/TIME: 01/28/2017 11:14 UNIT: [facility] ROOM: [facility] STUDY DESCRIPTION: CT Chest Wo Cont Attending Physician: Igor Borjas M.D. Ordering Physician: Sera Wood M.D. Primary Care Physician: Beatris Garcia M.D. MEDICAL IMAGING REPORT This report is preliminary unless electronic signature is present EXAM CT chest without contrast. INDICATION 61-year-old female with shortness of breath and cough since January 16. TECHNIQUE CT of the chest was performed without contrast. Coronal and sagittal reformatted images obtained. This CT exam was performed with one or more of the following radiation dose reduction techniques: automatic exposure control, adjustment of mA and/or kV according to patient size, and iterative reconstruction. COMPARISON STUDIES Comparison with 01/16/2017 FINDINGS There are bilateral pleural effusions. These have both slightly enlarged. Fluid is greater on the right than the left. There is associated passive atelectasis involving the lower lobes. No suspicious lymphadenopathy. Coronary artery stents. Limited imaging in the upper abdomen is unremarkable. The bone windows are unremarkable. IMPRESSION Bilateral pleural effusions with associated bilateral lower lobe passive atelectasis. The pleural effusions have enlarged slightly compared with the study from January 16. [facility] A [facility] RADIOLOGY TEXT RESULTS PATIENT: TYLER ATWOOD LOCATION: [facility] : [birth year] UNIT #: [id number] AGE: [address]: Igor Borjas MD SEX: F ORDER DR: Dictated by... Moncho Arteaga M.D. THIS IS AN ELECTRONICALLY VERIFIED REPORT Moncho Arteaga M.D. at 01/28/2017 5:02 PM CATARINA/taj TD: 01/28/2017 12:53 JOB #: [id number] MEDICAL IMAGING REPORT Page 1 of 1 COPY
--- NOTE | ~2017-01-16 | EKG ---
PATIENT: TYLER ATWOOD UNIT #: [id number] Ventricular Rate: 87 BPM Atrial Rate: 87 BPM P-R Interval: 140 ms QRS Duration: 106 ms Q-T Interval: 402 ms QTC Calculation(Bezet): 483 ms P [place]: 65 degrees Calculated R [place]: 39 degrees Calculated T [place]: 51 degrees Diagnosis Line: Normal sinus rhythm Diagnosis Line: Minimal voltage criteria for LVH, may be normal Diagnosis Line: variant Diagnosis Line: Borderline ECG Diagnosis Line: No previous ECGs available Diagnosis Line: Confirmed by RACHEL ALEXANDRA MD ([id number]) on Diagnosis Line: 01/17/2017 12:05:18 AM INTERPRETING MD: IBRAHIMA SALCEDO
--- NOTE | ~2017-01-16 | CO ---
Unit #: [id number] #: [id number] Patient: TYLER ATWOOD [id number] [address] [place], [place] [address] [id number] I MR#: [id number] NAME: TYLER ATWOOD ROOM: 318 Age: 61 Sex: F Admission Date: 01/16/2017 : 1955 Attending Physician: Igor Borjas M.D. Primary Care Physician: Beatris Garcia M.D. Consultation Date: 01/19/2017 CONSULTATION REPORT REASON FOR CONSULTATION Chest pain. HISTORY OF PRESENT ILLNESS This is a 61-year-old white female with history of having ischemic stroke back in 2013, has poor memory recall, seizure disorder, had a catheterization back in 2007 with nonobstructive CAD, she is a diabetic, hypertension, hypothyroidism, dementia likely from the stroke, who was treated for pneumonia just this past 11/2016, who came to the emergency room with increased shortness of breath and cough. According to the patient, has a poor memory recall. She reports that she had some pressure in her mid sternal region. The patient on exam today though she denies any chest pain; pain in her neck, bilateral jaws, shoulders, arms, or elbow. She has not had any dizziness, presyncope, or syncope. She does not reports of any fever, chills, or abdominal or back pain. Her chest x-ray suggested pulmonary infiltrate versus pulmonary edema, the patient was given a dose of IV Lasix and she diuresed almost 2 L. As noted the patient was recently discharged from the hospital on 11/26/2016 treated for healthcare-acquired pneumonia and also she was treated for E. coli. The patient does have some encephalopathy with UTI along with since her stroke has some poor memory recall. On this admission, her blood sugar was as high as 713, she received her usual dose of Lantus and 45 units of Humalog and her blood sugar decreased to the 200s. The patient's BNP was 298, WBCs 11.1. The patient's BUN was 40 with a creatinine 2.1. Since admission, the patient had a CT chest without contrast that showed moderate bilateral pleural effusions with bibasilar compressive atelectasis. The patient's EKG shows normal sinus rhythm. She does have left ventricular hypertrophy. Echo has been done since admission, it does show her LVEF was 50% to 55% with some questionable inferior wall hypokinesis, moderate mitral regurgitation, and some moderate pulmonary artery hypertension. With the patient's multiple symptoms and possible some fluid overload, Cardiology has been asked to assist with evaluation and management. PAST MEDICAL HISTORY 1. History of ischemic left [employer] stroke back in 2013 has some poor memory recall. 2. Seizure disorder. 3. In 2007 she had a cardiac cath, LVEF was 50% which reveal other findings normal left main, LAD 25% mid stenosis, ramus showed diffuse irregularities, left circumflex showed first marginal 25% stenosis, and the RCA showed 25% luminal irregularity. Unit #: [id number] #: [id number] Patient: TYLER ATWOOD 4. On 01/17/2017, 2D echo, LVEF of 50% to 55%, questionable inferior wall hypokinesis with moderate mitral regurgitation, mild tricuspid regurgitation, elevated RVSP 42 mmHg. 5. Diabetes mellitus type 2. 6. Hypertension. 7. Hyperlipidemia. 8. Hypothyroidism. 9. History of breast carcinoma, right mastectomy. 10. Recent healthcare-acquired pneumonia and UTI treatment in 11/2016. 11. Obesity. 12. Nonsmoker. 13. Some mild dementia since her stroke. PAST SURGICAL HISTORY 1. Labile and gluteal abscess requiring I and D. 2. Total abdominal hysterectomy. 3. Bladder repair x2. 4. Open cholecystectomy. 5. Extensive lumbar spine surgery and katrin placement. 6. Skin grafting. 7. Right mastectomy and reconstructive breast surgery. HOME MEDICATIONS Humalog 10 units subcu t.i.d. before meals, Lantus 55 units subcu at bedtime, Plavix 75 mg p.o. daily, loperamide 2 mg p.o. b.i.d. p.r.n., Glucotrol 5 mg p.o. b.i.d. before meals, iron 325 mg p.o. daily, Lipitor 40 mg p.o. daily, Prinivil 20 mg p.o. daily, levothyroxine 25 mcg p.o. daily, Protonix 20 mg p.o. daily, Aldactone 25 mg p.o. daily, Vimpat 100 mg p.o. b.i.d., Glucophage 500 mg p.o. b.i.d., Zantac 150 mg p.o. daily. ALLERGIES Shark liver oil, phenylephrine, glycerin, mineral oil, mercury, salt, lorazepam, Ativan, petroleum, white cocoa butter, sulfonamides, Bactrim, trimethoprim from Bactrim, witch antonio, strawberries. Allergic to Levemir. SOCIAL HISTORY The patient lives with her family. She has been a lifelong nonsmoker. No alcohol or illicit drug abuse. She states she ambulates with a walker, but sometimes navigate in her home probably not with the furniture. FAMILY HISTORY Her parents had diabetes mellitus and high blood pressure and strokes. Her mother of a stroke. Her father may have had a stroke. REVIEW OF SYSTEMS See details in HPI. PHYSICAL EXAMINATION GENERAL: Ms. Atwood is a 61-year-old white female, in no acute respiratory distress. She is awake, alert, and oriented. VITAL SIGNS: Blood pressure is 123/60, heart rate is 82, respirations 18, temperature 98.2, O2 saturations 96% on room air. NECK: Trachea midline. No thyromegaly or lymphadenopathy. Normal carotid upstrokes. No jugular venous distention. HEART: S1, S2. Regular rate and rhythm. Soft systolic murmur at left sternal border. LUNGS: Very diminished in the bases. Few faint fine rales. ABDOMEN: Obese, soft, nontender. Unit #: [id number] #: [id number] Patient: TYLER ATWOOD EXTREMITIES: Pedal pulses are palpable. Trace pedal edema. DIAGNOSTIC STUDIES LABORATORY RESULTS: Today's labs glucose is 314, BUN 40, creatinine 2.1, eGFR is 25.3, sodium 136, potassium 4.5, chloride is 103, CO2 of 28, calcium 7.9, magnesium is 2.1, total protein 6.0, albumin 2.90, bilirubin total 0.2, AST 13, ALT 12, alkaline phosphatase is 80. BNP is 331. TSH is 2.43. WBCs 10.7, hemoglobin 10.2, hematocrit 30.8, and platelets are 342. Initial cardiac enzymes; CK-MB is 1.3. Troponin less than 0.05. Repeat cardiac enzymes CK total is 43, troponin 0.03. INR 0.9. Negative influenza A and B. Urinalysis; 2+ protein, glucose greater than 1000, 0.2 urobilinogen, 1+ blood. Blood cultures preliminary report are negative. Urine culture is pending. IMAGING STUDIES: CT of the chest without contrast on 01/16/2017 shows bilateral pleural effusions with bibasilar compressive atelectasis. IMAGING STUDIES: Chest x-ray on 01/16/2017 shows interstitial changes throughout both lungs. Findings are nonspecific, could represent changes of interstitial edema, fibrosis or atypical pneumonia, and probable trace of left pleural effusion. CARDIOVASCULAR STUDIES: EKG shows normal sinus rhythm with ventricular rate 87 beats per minute, left ventricular hypertrophy. EKG today shows sinus rhythm with ventricular rate 80 beats per minute, left ventricular hypertrophy, poor R-wave progression, nondiagnostic Q waves in inferior leads. IMPRESSION 1. Acute respiratory failure, questionable pneumonia, questionable acute bronchitis, exacerbation of chronic obstructive pulmonary disease, bilateral pleural effusions. 2. Acute diastolic congestive heart failure responded to IV Lasix. 3. Coronary artery disease, nonobstructive coronary artery disease in 2007, atypical chest pain. 4. Acute kidney injury. 5. Left ventricular ejection fraction of 50% to 55% with moderate mitral regurgitation, mild tricuspid regurgitation, and mild pulmonary artery hypertension. 6. Poorly controlled diabetes mellitus. 7. Hypothyroidism. 8. Hypertension. 9. Hyperlipidemia. 10. History of breast cancer. PLAN 1. Cardiology consulted for chest pain. On exam, the patient is not very specific on her complaints. She says when she takes in a deep breath she has a little pressure midsternal. Her cardiac enzymes are negative. Her EKG does not show anything acute. According to the patient, she believes she has not had any recent ischemic heart disease workup. We will plan for Lexiscan Cardiolite stress test tomorrow for further evaluation. 2. On exam, her lungs are very diminished. She has some bilateral pleural effusions, Dr. Wood with Pulmonology is managing. He is tapering off her steroids. She is right now on oral antibiotics. Unit #: [id number] #: [id number] Patient: TYLER ATWOOD 3. Continue the patient on her Plavix and she is on daily Lovenox and statin. Obtain a fasting lipid profile to re-evaluate her hyperlipidemia. 4. The patient's creatinine has increased to 2.1 today, yesterday it was 1.9. She has been started on normal saline at 75 mL an hour. Because of the elevation, her Lasix was stopped on 01/17/2017. Monitor closely for any fluid overload. We will check labs tomorrow and evaluate the patient's overall status. 5. Further recommendations pending. Thank you very much for allowing us to assist in the patient's care. Dictated by... Elena Naqvi A.P.R.N. for Chidi Thomas/bonil TD: 01/20/2017 07:34 JOB #: [id number] CONSULTATION REPORT X Elena Naqvi APRN X CONSULTATION REPORT
--- NOTE | ~2017-01-16 | CR63 ---
[facility] A Service of [facility] RADIOLOGY TEXT RESULTS PATIENT: TYLER ATWOOD LOCATION: [facility] 571-01 : [birth year] UNIT #: [id number] AGE: [address]: Igor Borjas MD SEX: F ORDER DR: [id number] [facility] [address] [facility]. [place], [place] [address] [id number] I MR#: [id number] Acc #: [id number] NAME: TYLER ATWOOD : 1955 SEX: F STUDY DATE/TIME: 01/26/2017 20:41 UNIT: [facility] ROOM: [facility] STUDY DESCRIPTION: CR Chest 2 View Attending Physician: Igor Borjas M.D. Ordering Physician: Physician Non-Staff Primary Care Physician: Beatris Garcia M.D. MEDICAL IMAGING REPORT This report is preliminary unless electronic signature is present EXAM Chest PA and lateral, 01/26/2017 COMPARISON STUDIES Portable film 01/21/17 HISTORY Shortness of breath, weakness, heart failure, worse over the last 2 weeks. FINDINGS PA and lateral views are obtained. Cardiac size is enlarged. The lungs show significant worsening of pulmonary vascular congestion and edema. There are bilateral dependent pleural effusions, and there is fluid in the major fissure on the right. CONCLUSION Significant worsening in congestive heart failure and pulmonary edema with bilateral pleural effusions. Dictated by... Carlos Salmon M.D. THIS IS AN ELECTRONICALLY VERIFIED REPORT Carlos Salmon M.D. at 01/27/2017 10:35 AM Nikos TD: 01/27/2017 05:59 JOB #: [id number] MEDICAL IMAGING REPORT Page 1 of 1 COPY
--- NOTE | ~2017-01-16 | EKG ---
PATIENT: TYLER ATWOOD UNIT #: [id number] Ventricular Rate: 54 BPM Atrial Rate: 54 BPM P-R Interval: 154 ms QRS Duration: 108 ms Q-T Interval: 500 ms QTC Calculation(Bezet): 474 ms P Paris: 12 degrees Calculated R Paris: 31 degrees Calculated T Paris: 23 degrees Diagnosis Line: Sinus bradycardia Diagnosis Line: Otherwise normal ECG Diagnosis Line: When compared with ECG of 25-JAN-2017 05:42, Diagnosis Line: (unconfirmed) Diagnosis Line: No significant change was found Diagnosis Line: Confirmed by ELIDA GRIMALDO MD ([id number]) on 01/28/2017 Diagnosis Line: 7:41:32 AM INTERPRETING MD: RE SALCEDO
--- NOTE | ~2017-01-16 | CR63 ---
[facility] A Service of [facility] & [facility] RADIOLOGY TEXT RESULTS PATIENT: TYLER ATWOOD LOCATION: [facility] 318- : [birth year] UNIT #: [id number] AGE: [address]: Igor Borjas MD SEX: F ORDER DR: [id number] [facility] [address] [facility]. [place], [place] [address] [id number] I MR#: [id number] Acc #: [id number] NAME: TYLER ATWOOD : 1955 SEX: F STUDY DATE/TIME: 01/21/2017 9:30 UNIT: [facility] PCU ROOM: 318 STUDY DESCRIPTION: CR Chest 2 View Attending Physician: Igor Borjas M.D. Ordering Physician: Igor Borjas M.D. Primary Care Physician: Beatris Garcia M.D. MEDICAL IMAGING REPORT This report is preliminary unless electronic signature is present EXAM Chest 01/21/2017 [facility] HISTORY 61-year-old woman, short of air and cough past 8 days. History of high blood pressure, seizure, past CVA. COMPARISON Portable chest 01/20/2017 FINDINGS 2-view chest demonstrates borderline heart size with mild aortic ectasia. Azygos fissure again noted right apex. Partial clearing of bilateral pleural effusions. There appear to be segmental infiltrates in both lower lobes. Consider resolving heart failure with coexisting bibasilar pneumonia. IMPRESSION There is resolving congestive heart failure. Coexisting bilateral lower lobe pneumonia is strongly suggested. Correlate clinically Dictated by... Paul Kelley M.D. THIS IS AN ELECTRONICALLY VERIFIED REPORT Paul Kelley M.D. at 01/21/2017 1:45 PM MARYAM/riya TD: 01/21/2017 12:52 JOB #: [id number] MEDICAL IMAGING REPORT COPY
--- NOTE | ~2017-01-16 | TOC ---
Unit #: [id number] #: [id number] Patient: TYLER ATWOOD [id number] [address] [place], [place] [address] [id number] I MR#: [id number] NAME: TYLER ATWOOD ROOM: 318 Age: 61 Sex: F Admission Date: 01/16/2017 : 1955 Attending Physician: Igor Borjas M.D. Primary Care Physician: Beatris Garcia M.D. TRANSFER OF CARE SUMMARY WORKING DIAGNOSES 1. Acute kidney injury, likely due to antibiotic usage and diuresis. 2. Abnormal stress test, planning for left heart catheterization on Tuesday once renal function has stabilized. 3. Acute hypoxic respiratory failure. Continues with oxygen support likely due to COPD exacerbation and . 4. Type 2 diabetes, uncontrolled with A1c of 14.0. 5. History of bronchitis. We treated this patient with antibiotics for a total of 5 days. 6. Seizure disorder, stable on Vimpat. 7. History of hypothyroidism. TSH checked and was 2.43. 8. Prior history of cerebrovascular accident, stable, without any focal deficits. 9. Cardiomyopathy with an estimated ejection fraction of 38% on stress echocardiogram. 10. Pulmonary arterial hypertension with right ventricular pressure of 42 mmHg on echo. CONSULTANTS TO DATE 1. Dr. Ovalle of cardiology. 2. Dr. Del Castillo of nephrology. 3. Dr. Wood of pulmonary. IMAGING Includes: Chest x-ray, on 01/16/2017. Impression: Interstitial changes throughout both lungs greatest in the bibasilar distribution. Findings are nonspecific and could represent changes of interstitial edema, pulmonary fibrosis or atypical interstitial pneumonia. Findings do not appear appreciably changed from the previous exam. 2) probable trace lower effusions unchanged. CT of the chest, on 01/16/2017. Impression: Moderate bilateral pleural effusions with bibasilar compressive atelectasis. Renal ultrasound, on 01/20/2017. Impression: No hydronephrosis or shadowing stone on either side. Bladder unremarkable. Chest x-ray, on 01/20/2017. Impression: Stable cardiomegaly with stable bilateral pleural effusions, increased atelectasis or infiltrate noted in the right lung base with stable mild atelectasis or infiltrate at the left base. Unit #: [id number] #: [id number] Patient: TYLER ATWOOD Chest x-ray, on 01/21/2017. Impression: There is resolving congestive heart failure coexisting bilateral lower lobe pneumonia is strongly suggested. Correlate clinically. LABORATORY Today's labs include: BMP glucose 313, BUN 62, creatinine 2.0, sodium 134, potassium 4.2, chloride 103, CO2 is 23, calcium 8.2, phosphorus 3.7, magnesium 2.2, total protein 6.0, albumin 2.9, total bilirubin 0.2, AST 13, ALT 12, alkaline phosphatase 80. Troponins have been undetectable thus far. Her last CPK on 01/16/2017 was 43. CBC with WBC of 10.1, RBC 3.79, hemoglobin 10.7, hematocrit 33.6, MCV 88.7, MCH 28.3, MCHC 31.9, RDW 14.1, platelets 335, MPV is 8.1. Please note that patient has been afebrile during this hospitalization. When we assessed her procalcitonin level it was noted to be 0.07. HOSPITAL COURSE The patient is a pleasant 61-year-old female with past medical history of type 2 diabetes, essential hypertension, prior history of CVA, nonobstructive coronary artery disease per normal stress echo who presented to the emergency department with symptoms of shortness of breath. In the emergency department, she was evaluated for possible fluid overload and given Lasix 40 mg times 1 and Mojica catheter was placed. Since then, she had diuresed about 2 liters. A chest x-ray was read which did suggest pulmonary infiltrate versus pulmonary edema. She was recently discharged from the hospital on 11/26/2016, treated for community-acquired pneumonia. On her last discharge, she was treated for E coli UTI with some encephalopathy. Her blood sugars in the emergency department were initially in the 700s and she had received her usual dose of Lantus, 45 units of Humalog, and had blood sugar was reduced to the 200s. She did have some pseudohyponatremia on admission. She was admitted for acute hypoxic respiratory failure and was treated with broad-spectrum antibiotics with vancomycin, one dose of tobramycin and Zosyn for possible healthcare-acquired pneumonia. She was seen in consultation with Dr. Wood for the acute hypoxic respiratory failure and the presumed healthcare-acquired pneumonia on admission. On admission, she originally was ordered Lasix 40 mg to continue twice daily for diastolic heart failure. The following day, the patient's creatinine had increased from 1.0 on admission to 1.7. Assessed a procalcitonin level was basically undetectable with much increase in her creatinine as well as no evidence of pneumonia. Antibiotics were de-escalated to stop all IV antibiotics and to continue with doxycycline orally for tracheal bronchitis and diuretics were held due to worsening of her renal function. We were treating patient for acute COPD exacerbation as well as acute hypoxic respiratory failure. We had assessed her heart failure with a 2D echo which revealed that the left ventricular systolic function was normal and was estimated to be between 50% to 55%. She had mild left ventricular hypertrophy but it could not rule out inferior wall hypokinesis. She did have much elevated right ventricular systolic pressure of 42 mmHg. That following day, patient also had symptoms of intermittent chest pain with left axillary pain as well. She had intermittent symptoms of dyspnea. Therefore, a stress echo was ordered and Cardiology was consulted. Cardiology had stated that patient's echo was much abnormal and her predicted ejection fraction was 38% on the stress echo. At this time, we cannot rule out an ischemic cardiomyopathy process but due to her acute kidney injury it is not desirable to have that assessed with heart cath at this time. Nephrology with Dr. Del Castillo was consulted and had recommended that Unit #: [id number] #: [id number] Patient: TYLER ATWOOD patient wait until 01/24/2017, to allow her kidney functions to stabilize prior to proceeding with a heart cath. Due to patient's much depressed ventricular function, at 38%, we could not hydrate her very aggressively. At this time, she is off of fluid hydration and Cardiology is following and assessing her daily for the need of diuresis. CURRENT MEDICATIONS Include: 1. Imdur 30 mg p.o. daily. 2. Hydralazine 25 mg p.o. b.i.d. 3. Lopressor 25 mg p.o. b.i.d. 4. Lovenox 30 mg subcutaneously daily. 5. Insulin. She currently is getting 55 units subsequently h.s. 6. Insulin 25 units subcutaneously with meals. 7. Low dose sliding scale insulin. 8. Pepcid 20 mg p.o. daily. 9. MiraLAX 17 grams p.o. daily as needed for constipation. 10. Lipitor 40 mg p.o. h.s. 11. Ferrous gluconate 324 mg p.o. daily. 12. Plavix 75 mg p.o. daily. 13. Vimpat 100 mg p.o. b.i.d. 14. Glucotrol 5 mg p.o. b.i.d. 15. Synthroid 0.025 mg p.o. daily. 16. Ativan 0.25 mg p.o. b.i.d. p.r.n. for anxiety. 17. Lopressor 1.25 mg IV as needed for elevated blood pressure systolic greater than 180 or diastolic greater than 100. 18. Albuterol nebulized q.2 h. as needed for shortness of breath and/or wheezing. 19. Combivent inhaled q.4 h. 20. Tylenol 650 mg p.o. q.6 h. as needed for fever and/or mild pain. 21. Loperamide 2 mg p.o. b.i.d. as needed for diarrhea. Dictated by... Varsha Antonio PA-C for Chidi Bello/presley TD: 01/21/2017 15:43 JOB #: [id number] TRANSFER OF CARE SUMMARY X X TRANSFER OF CARE SUMMARY
--- NOTE | ~2017-01-16 | HP ---
Unit #: [id number] #: [id number] Patient: TYLER ATWOOD [id number] [address] [place], [place] [address] [id number] I MR#: [id number] NAME: TYLER ATWOOD ROOM: 318 Age: 61 Sex: F Admission Date: 01/16/2017 : 1955 Attending Physician: Bess Bhatti M.D. Primary Care Physician: Beatris Garcia M.D. HISTORY AND PHYSICAL CHIEF COMPLAINT Shortness of breath. HISTORY OF PRESENT ILLNESS The patient is a 61-year-old female with diabetes, hypertension, and history of stroke in the past, who presented with shortness of breath. She came to the emergency room. She was evaluated for possible fluid overload and given IV Lasix 40 mg x1 and a Mojica catheter was placed. Since then, she has diuresed about two liters. A chest x-ray which was read did suggest a pulmonary infiltrate versus pulmonary edema. She was recently discharged from the hospital on November 26, 2016, and is currently being treated for healthcare-acquired pneumonia. On her last discharge, she was treated for E. coli and some encephalopathy with her UTI. Her blood sugars early was in the 700s, 713, for which, after having received her usual dose of Lantus and 45 units of Humalog, sugars right now are in the 200s. Patient had breakfast but has yet to eat lunch. She also had some pseudohyponatremia as well. She denies any shortness of breath at this time, denies any chest pain or headache, and denies any abdominal pain, constipation, or diarrhea. PAST MEDICAL HISTORY 1. Ischemic cardiomyopathy. 2. Toxic metabolic encephalopathy. 3. Nonobstructive coronary artery disease. 4. Breast cancer. 5. Adult-onset diabetes mellitus. 6. Hypertension. 7. Hypothyroidism. 8. Gastroesophageal reflux disease. 9. Seizure disorder. 10. Cholecystectomy. 11. Total abdominal hysterectomy. 12. Labile gluteal abscess requiring I and D. 13. Skin grafting. 14. Right mastectomy and reconstructive breast surgery. ALLERGIES SHARK LIVER OIL, PHENYLEPHRINE, MERCURY SALT, MINERAL OIL, PETROLEUM, BACTRIM, LEVEMIR, STRAWBERRY, WITCH ADAM, LORAZEPAM, PETROLATUM, WHITE COCOA BUTTER. MEDICATIONS Unit #: [id number] #: [id number] Patient: TYLER ATWOOD 1. Humalog 10 units subcutaneous 3 times daily before meals. 2. Lantus 55 units subcutaneous at bedtime. 3. Plavix 75 mg p.o. daily. 4. * 2 mg p.o. twice daily. 5. Glucotrol 5 mg p.o. twice daily before meals. 6. Iron 325 mg p.o. daily. 7. Lipitor 40 mg p.o. daily. 8. Prinivil 20 mg p.o. daily. 9. Levothyroxine 25 mcg p.o. daily. 10. Protonix 40 mg p.o. daily. 11. Aldactone 25 mg p.o. daily. 12. Vimpat 100 mg p.o. twice daily. 13. Glucophage 500 mg p.o. twice daily. 14. Zantac 150 mg p.o. twice daily. FAMILY HISTORY Coronary artery disease, diabetes mellitus type 2, hypertension, malignancy of the brain. SOCIAL HISTORY She lives by herself and family. She is a lifelong nonsmoker with no tobacco use, alcohol use. or illicit drug use at this time. REVIEW OF SYSTEMS As stated above in the History of Present Illness. A complete 10-point review of systems has been done and pertinent positives noted. PHYSICAL EXAMINATION GENERAL: She was comfortable at this point and not in any distress. VITAL SIGNS: Blood pressure 160/79, pulse 96, respiratory rate 16 cycles per minute, and temperature 98.7. HEENT: Pupils were equal and reactive to light and accommodation. NECK: Supple without thyromegaly. CHEST: Reduced breath sounds at lung bases posteriorly. CARDIOVASCULAR: First and second heart sounds. ABDOMEN: Full, moved with respirations, soft, nondistended, and nontender. Mojica catheter was in situ. EXTREMITIES: Mild bilateral lower extremity edema. SKIN: Warm and dry with no rashes. LYMPHATICS: No enlarged peripheral lymphadenopathy that I could appreciate. PSYCHIATRIC: Does not seem to respond to external stimuli. Alert and oriented x3. DIAGNOSTIC STUDIES LABORATORY: Chemistries with glucose of 713, BUN and creatinine 18 and 1, sodium and potassium 127 and 4.4, calcium 8.1, and albumin 2.9. CBC with WBC of 12.2, hemoglobin and hematocrit 11.9 and 37.1, and platelet count of 340,000. Urinalysis with glucose greater than 1000, urobilinogen 0.2, blood 1+, and protein 2+. IMAGING: Chest x-ray showed interstitial changes throughout both lungs, greatest in the bibasilar distribution. Findings are nonspecific but could represent changes of interstitial edema, fibrosis, or atypical interstitial pneumonia. She had probable trace left pleural effusions as well. CARDIOLOGY: EKG showed normal sinus rhythm with a ventricular rate of 87 Unit #: [id number] #: [id number] Patient: TYLER ATWOOD beats per minute. ASSESSMENT AND PLAN 1. Acute respiratory failure, congestive heart failure versus pneumonia. Admit her to telemetry, put her on broad spectrum antibiotics, give her diuresis, and consult Pulmonary, Dr. Wood. 2. Coronary artery disease. Continue her medicines and Plavix. 3. Hypertension. Continue medications per home dose. 4. Diabetes mellitus type 2. Would monitor her sugars very closely and very aggressively. Her sugars of 713 will be monitored aggressively with insulin. Put a consult in for Endocrinology should this become difficult to control. Otherwise, will check hemoglobin A1c with morning labs. Will get a set of cardiac enzymes. 5. Gastrointestinal prophylaxis. Put her on Protonix 40 mg p.o. daily. 6. For hypothyroidism and hyperlipidemia, continue Lipitor, as well as levothyroxine. 7. Patient may have a history of pseudoseizures for which she is on Vimpat. Will continue with this at this time. *Faxed to Dr. Bhatti on 01/17/2017. PLC Dictated by Chidi Kingsley/fabian TD: 01/16/2017 16:41 JOB #: [id number] HISTORY AND PHYSICAL X Bess Bhatti MD HISTORY AND PHYSICAL
--- NOTE | ~2017-01-16 | EKG ---
PATIENT: TYLER ATWOOD UNIT #: [id number] Ventricular Rate: 64 BPM Atrial Rate: 64 BPM P-R Interval: 130 ms QRS Duration: 100 ms Q-T Interval: 436 ms QTC Calculation(Bezet): 449 ms P [place]: 37 degrees Calculated R [place]: 46 degrees Calculated T [place]: -23 degrees Diagnosis Line: Normal sinus rhythm Diagnosis Line: T wave abnormality, consider inferior ischemia Diagnosis Line: Abnormal ECG Diagnosis Line: When compared with ECG of 19-JAN-2017 11:37, Diagnosis Line: Nonspecific T wave abnormality now evident in Diagnosis Line: Lateral leads Diagnosis Line: Confirmed by ELIDA GRIMALDO MD ([id number]) on 01/25/2017 Diagnosis Line: 4:44:47 AM INTERPRETING MD: RE SALCEDO
[2017-01-16 01:37] LABS: ARTERIAL BLD GAS O2 SATURATION 95.5 % (90.0-100.0); ARTERIAL BLOOD GAS CARBOXY HB 0.8 %sat (0.0-9.0); ARTERIAL BLOOD GAS MET HB 0.8 %sat (0.0-2.0); ARTERIAL BLOOD GAS PCO2 35.4 mmHg (35.0-45.0); ARTERIAL BLOOD GAS PO2 80.8 mmHg (80.0-100); ARTERIAL BLOOD GAS pH 7.421 (7.350-7.450)
[2017-01-16 01:40] LABS: ARTERIAL BLOOD GAS ALLEN TEST NORMAL; ARTERIAL BLOOD GAS ART SITE LEFT RADIAL; ARTERIAL DRAW? YES
[2017-01-16 04:12] LABS: URINE SOURCE CLEAN CATCH
[2017-01-16 04:17] LABS: BASOPHIL# 0.1 X10e3 (0-0.3); BASOPHIL% 0.6 % (0-2.5); EOSINOPHIL# 0.1 X10e3 (0-0.7); EOSINOPHIL% 1.1 % (0.0-7.0); HEMATOCRIT 37.1 % (35.0-45.0); HEMOGLOBIN 11.9 gm/dL (12.0-16.0); LYMPHOCYTE% 16.7 % (17.0-45.0); MEAN CELL VOLUME 89.1 FL (83-96); MEAN CORPUSCULAR HEMOGLOBIN 28.7 PG (28-34); MEAN CORPUSCULAR HGB CONC 32.2 g/dL (30-36); MEAN PLATELET VOLUME 8.2 FL (6.5-11.5); MONOCYTE# 0.5 X10e3 (0-1.0); NEUTROPHIL# 9.5 X10e3 (1.5-7.1); NEUTROPHIL% 77.6 % (40-75); PLATELET COUNT 340 X10e3 (140-420); RED BLOOD COUNT 4.16 X10e (3.90-5.30); RED CELL DISTRIBUTION WIDTH 14.2 % (11.0-15.5); WHITE BLOOD COUNT 12.2 X10e3 (4.0-10.5)
[2017-01-16 04:21] LABS: DIFF IND NO
[2017-01-16 04:31] LABS: INR 0.9; PARTIAL THROMBOPLASTIN TIME 22.8 SECONDS (23.5-31.3); PROTHROMBIN TIME (PATIENT) 9.5 SECONDS (9.6-11.5)
[2017-01-16 04:33] LABS: URINE APPEARANCE CLEAR; URINE BILIRUBIN NEG (NEG); URINE BLOOD 1+ (NEG); URINE COLOR YELLOW; URINE GLUCOSE >1000 MG/DL (NEG); URINE KETONE NEG (NEG); URINE LEUKOCYTE ESTERASE NEG (NEG); URINE NITRATE NEG (NEG); URINE PH 6.5 (5-8); URINE PROTEIN 2+ (NEG); URINE SPECIFIC GRAVITY 1.024 (1.003-1.035); URINE UROBILINOGEN 0.2 MG/DL (NEG)
[2017-01-16 04:38] LABS: URINE BACTERIA AUWI NEG (NEGATIVE); URINE SQUAMOUS EPITHELIAL CELL NONE SEEN /[HPF]; UWBCS1 AUWI 0-2 (0-5)
[2017-01-16 04:40] LABS: CULTURE INDICATED? NO
[2017-01-16 04:53] LABS: ALBUMIN SERUM 2.9 g/dL (3.5-5.0); BETA HYDROXYBUTYRATE 0.16 MMOL/L (0.02-0.27); BILIRUBIN,TOTAL 0.2 mg/dL (0.2-2.0); CALCIUM SERUM 8.1 mg/dL (8.4-10.2); GLOM FILT RATE Estimated 59.5 mL/min (>60); MAGNESIUM 1.7 mg/dL (1.6-3.0); POTASSIUM 4.4 mmol/L (3.5-5.1)
[2017-01-16 04:58] LABS: BILIRUBIN, DIRECT 0.1 mg/dL (0.0-0.2); BILIRUBIN,INDIRECT 0.1 mg/dL (0.0-0.9)
[2017-01-16 05:58] LABS: POC - CKMB 1.3 ng/mL (0.0-7.9); POC - TROPONIN <0.05 ng/mL (<=0.05)
[2017-01-16 13:26] LABS: CK TOTAL 46 IU/L (26-140)
[2017-01-16 13:48] LABS: INFLUENZA A NEG (NEG); INFLUENZA B NEG (NEG)
[2017-01-16 18:45] LABS: CK TOTAL 43 IU/L (26-140)
[2017-01-17 00:06] LABS: CK TOTAL 43 IU/L (26-140)
[2017-01-17 06:15] LABS: HEMATOCRIT 33.1 % (35.0-45.0); HEMOGLOBIN 11.1 gm/dL (12.0-16.0); MEAN CORPUSCULAR HEMOGLOBIN 28.8 PG (28-34); MEAN CORPUSCULAR HGB CONC 33.4 g/dL (30-36); RED BLOOD COUNT 3.84 X10e (3.90-5.30); RED CELL DISTRIBUTION WIDTH 13.9 % (11.0-15.5); WHITE BLOOD COUNT 11.1 X10e3 (4.0-10.5)
[2017-01-17 06:19] LABS: MEAN CELL VOLUME 86.1 FL (83-96)
[2017-01-17 07:26] LABS: BUN/CREATININE RATIO 14.7; CALCIUM SERUM 8.5 mg/dL (8.4-10.2); CREATININE SERUM 1.7 mg/dL (0.6-1.4); GLOM FILT RATE Estimated 32.3 mL/min (>60); POTASSIUM 4.3 mmol/L (3.5-5.1)
[2017-01-18 06:08] LABS: HEMATOCRIT 30.8 % (35.0-45.0); HEMOGLOBIN 10.2 gm/dL (12.0-16.0); MEAN CELL VOLUME 86.6 FL (83-96); MEAN CORPUSCULAR HEMOGLOBIN 28.7 PG (28-34); MEAN CORPUSCULAR HGB CONC 33.1 g/dL (30-36); MEAN PLATELET VOLUME 7.7 FL (6.5-11.5); RED BLOOD COUNT 3.55 X10e (3.90-5.30); RED CELL DISTRIBUTION WIDTH 14.4 % (11.0-15.5); WHITE BLOOD COUNT 10.7 X10e3 (4.0-10.5)
[2017-01-18 07:06] LABS: BUN/CREATININE RATIO 16.31; CALCIUM SERUM 8.1 mg/dL (8.4-10.2); CREATININE SERUM 1.9 mg/dL (0.6-1.4); GLOM FILT RATE Estimated 28.4 mL/min (>60); MAGNESIUM 2.1 mg/dL (1.6-3.0); POTASSIUM 4.5 mmol/L (3.5-5.1)
[2017-01-19 06:03] LABS: BUN/CREATININE RATIO 19.04; CALCIUM SERUM 7.9 mg/dL (8.4-10.2); CREATININE SERUM 2.1 mg/dL (0.6-1.4); GLOM FILT RATE Estimated 25.3 mL/min (>60); POTASSIUM 4.5 mmol/L (3.5-5.1)
[2017-01-20 03:45] LABS: URINE APPEARANCE CLEAR; URINE BILIRUBIN NEG (NEG); URINE BLOOD TRACE (NEG); URINE COLOR YELLOW; URINE GLUCOSE 500 MG/DL (NEG); URINE KETONE NEG (NEG); URINE LEUKOCYTE ESTERASE NEG (NEG); URINE NITRATE NEG (NEG); URINE PROTEIN 3+ (NEG); URINE SPECIFIC GRAVITY 1.013 (1.003-1.035); URINE UROBILINOGEN 0.2 MG/DL (NEG)
[2017-01-20 03:47] LABS: URINE BACTERIA AUWI NEG (NEGATIVE); URINE SQUAMOUS EPITHELIAL CELL OCC /[HPF]
[2017-01-20 03:48] LABS: CULTURE INDICATED? NO
[2017-01-20 06:07] LABS: HEMATOCRIT 30.6 % (35.0-45.0); HEMOGLOBIN 9.9 gm/dL (12.0-16.0); MEAN CELL VOLUME 88.4 FL (83-96); MEAN CORPUSCULAR HEMOGLOBIN 28.6 PG (28-34); MEAN CORPUSCULAR HGB CONC 32.3 g/dL (30-36); MEAN PLATELET VOLUME 7.9 FL (6.5-11.5); RED BLOOD COUNT 3.46 X10e (3.90-5.30); RED CELL DISTRIBUTION WIDTH 14.5 % (11.0-15.5)
[2017-01-20 06:47] LABS: BUN/CREATININE RATIO 22.38; CALCIUM SERUM 8.3 mg/dL (8.4-10.2); CREATININE SERUM 2.1 mg/dL (0.6-1.4); GLOM FILT RATE Estimated 25.3 mL/min (>60); MAGNESIUM 2.2 mg/dL (1.6-3.0); POTASSIUM 4.2 mmol/L (3.5-5.1)
[2017-01-20 06:56] LABS: CHOLESTEROL 161 mg/dL (0-200); HDL CHOLESTEROL 44 mg/dL (35-95); LDL CHOLESTEROL 91 mg/dL (-130); LDL/HDL RATIO 2 RATIO (0-4); TRIGLYCERIDES 130 mg/dL (10-160)
[2017-01-21 07:21] LABS: HEMATOCRIT 33.6 % (35.0-45.0); HEMOGLOBIN 10.7 gm/dL (12.0-16.0); MEAN CELL VOLUME 88.7 FL (83-96); MEAN CORPUSCULAR HEMOGLOBIN 28.3 PG (28-34); MEAN CORPUSCULAR HGB CONC 31.9 g/dL (30-36); MEAN PLATELET VOLUME 8.1 FL (6.5-11.5); RED BLOOD COUNT 3.79 X10e (3.90-5.30); RED CELL DISTRIBUTION WIDTH 14.1 % (11.0-15.5); WHITE BLOOD COUNT 10.1 X10e3 (4.0-10.5)
[2017-01-21 07:59] LABS: CALCIUM SERUM 8.2 mg/dL (8.4-10.2); GLOM FILT RATE Estimated 26.7 mL/min (>60); POTASSIUM 4.2 mmol/L (3.5-5.1)
[2017-01-22 06:24] LABS: HEMATOCRIT 32.6 % (35.0-45.0); HEMOGLOBIN 10.5 gm/dL (12.0-16.0); MEAN CELL VOLUME 89.1 FL (83-96); MEAN CORPUSCULAR HEMOGLOBIN 28.6 PG (28-34); MEAN CORPUSCULAR HGB CONC 32.1 g/dL (30-36); MEAN PLATELET VOLUME 8.5 FL (6.5-11.5); RED BLOOD COUNT 3.66 X10e (3.90-5.30); WHITE BLOOD COUNT 10.4 X10e3 (4.0-10.5)
[2017-01-22 07:01] LABS: ALBUMIN SERUM 2.4 g/dL (3.5-5.0); BILIRUBIN,TOTAL 0.4 mg/dL (0.2-2.0); BUN/CREATININE RATIO 32.38; CALCIUM SERUM 7.9 mg/dL (8.4-10.2); CREATININE SERUM 2.1 mg/dL (0.6-1.4); GLOM FILT RATE Estimated 25.3 mL/min (>60); POTASSIUM 4.3 mmol/L (3.5-5.1); PROTEIN TOTAL SERUM 5.2 g/dL (6.0-8.3)
[2017-01-22 09:21] LABS: URINE APPEARANCE CLEAR; URINE BILIRUBIN NEG (NEG); URINE BLOOD NEG (NEG); URINE COLOR YELLOW; URINE GLUCOSE NEG (NEG); URINE KETONE NEG (NEG); URINE LEUKOCYTE ESTERASE TRACE (NEG); URINE NITRATE NEG (NEG); URINE PROTEIN 1+ (NEG); URINE SPECIFIC GRAVITY 1.008 (1.003-1.035); URINE UROBILINOGEN 0.2 MG/DL (NEG)
[2017-01-22 09:24] LABS: URINE BACTERIA AUWI NEG (NEGATIVE); URINE SQUAMOUS EPITHELIAL CELL NONE SEEN /[HPF]; UWBCS1 AUWI 0-2 (0-5)
[2017-01-22 09:40] LABS: URBCS1 AUWI 0-2 /[HPF] (0-2)
[2017-01-22 09:48] LABS: CREATININE,RANDOM URINE 34 mg/dL; TOTAL PROTEIN,RANDOM URINE 37 mg/dl (<10)
[2017-01-23 06:43] LABS: BUN/CREATININE RATIO 29.13; CALCIUM SERUM 8.2 mg/dL (8.4-10.2); CREATININE SERUM 2.3 mg/dL (0.6-1.4); GLOM FILT RATE Estimated 22.8 mL/min (>60); POTASSIUM 4.7 mmol/L (3.5-5.1)
[2017-01-24 06:05] LABS: BASOPHIL# 0.1 X10e3 (0-0.3); BASOPHIL% 0.6 % (0-2.5); EOSINOPHIL# 0.2 X10e3 (0-0.7); EOSINOPHIL% 2.1 % (0.0-7.0); HEMATOCRIT 32.3 % (35.0-45.0); HEMOGLOBIN 10.5 gm/dL (12.0-16.0); LYMPHOCYTE# 2.5 X10e3 (1.0-3.5); LYMPHOCYTE% 27.1 % (17.0-45.0); MEAN CELL VOLUME 87.7 FL (83-96); MEAN CORPUSCULAR HEMOGLOBIN 28.6 PG (28-34); MEAN CORPUSCULAR HGB CONC 32.6 g/dL (30-36); MEAN PLATELET VOLUME 8.5 FL (6.5-11.5); MONOCYTE# 0.6 X10e3 (0-1.0); MONOCYTE% 6.9 % (3.0-12.0); NEUTROPHIL# 5.7 X10e3 (1.5-7.1); NEUTROPHIL% 63.3 % (40-75); PLATELET COUNT 306 X10e3 (140-420); RED BLOOD COUNT 3.68 X10e (3.90-5.30); RED CELL DISTRIBUTION WIDTH 13.9 % (11.0-15.5); WHITE BLOOD COUNT 9.1 X10e3 (4.0-10.5)
[2017-01-24 06:07] LABS: PARTIAL THROMBOPLASTIN TIME 23.6 SECONDS (23.5-31.3)
[2017-01-24 06:13] LABS: DIFF IND NO
[2017-01-24 06:40] LABS: BUN/CREATININE RATIO 26.66; CALCIUM SERUM 8.3 mg/dL (8.4-10.2); CREATININE SERUM 2.1 mg/dL (0.6-1.4); GLOM FILT RATE Estimated 25.3 mL/min (>60); POTASSIUM 3.9 mmol/L (3.5-5.1)
[2017-01-24 18:54] LABS: ANGIO %MB 6.4 % (0.0-4.0); ANGIO MB 2.8 ng/ml
[2017-01-25 03:14] LABS: HEMATOCRIT 29.4 % (35.0-45.0); HEMOGLOBIN 9.5 gm/dL (12.0-16.0); MEAN CELL VOLUME 88.6 FL (83-96); MEAN CORPUSCULAR HEMOGLOBIN 28.4 PG (28-34); MEAN CORPUSCULAR HGB CONC 32.1 g/dL (30-36); MEAN PLATELET VOLUME 8.2 FL (6.5-11.5); RED BLOOD COUNT 3.33 X10e (3.90-5.30); RED CELL DISTRIBUTION WIDTH 14.1 % (11.0-15.5); WHITE BLOOD COUNT 9.6 X10e3 (4.0-10.5)
[2017-01-25 03:35] LABS: BUN/CREATININE RATIO 26.81; CALCIUM SERUM 7.9 mg/dL (8.4-10.2); CREATININE SERUM 2.2 mg/dL (0.6-1.4); MAGNESIUM 2.2 mg/dL (1.6-3.0); POTASSIUM 4.2 mmol/L (3.5-5.1)
[2017-01-25 03:47] LABS: ANGIO %MB 7.5 % (0.0-4.0); ANGIO MB 4.3 ng/ml
[2017-01-25 23:11] LABS: URINE APPEARANCE CLEAR; URINE BILIRUBIN NEG (NEG); URINE BLOOD NEG (NEG); URINE COLOR YELLOW; URINE GLUCOSE 250 MG/DL (NEG); URINE KETONE NEG (NEG); URINE LEUKOCYTE ESTERASE NEG (NEG); URINE NITRATE NEG (NEG); URINE PH 5.5 (5-8); URINE PROTEIN 1+ (NEG); URINE UROBILINOGEN 0.2 MG/DL (NEG)
[2017-01-25 23:14] LABS: U HYALINE CASTS AUWI 0-2 /[LPF]; URBCS1 AUWI 0-2 /[HPF] (0-2); URINE BACTERIA AUWI NEG (NEGATIVE); URINE SQUAMOUS EPITHELIAL CELL NONE SEEN /[HPF]; UWBCS1 AUWI 0-2 (0-5)
[2017-01-26 06:16] LABS: BUN/CREATININE RATIO 24.78; CALCIUM SERUM 8.1 mg/dL (8.4-10.2); CREATININE SERUM 2.3 mg/dL (0.6-1.4); GLOM FILT RATE Estimated 22.8 mL/min (>60); POTASSIUM 4.4 mmol/L (3.5-5.1)
[2017-01-26] MEDS ORDERED: LOPRESSOR PO (16:19)
[2017-01-26] MEDS ORDERED: LASIX PO (16:21)
[2017-01-26] MEDS ORDERED: LIPITOR40 MG PO (16:24)
[2017-01-26] MEDS ORDERED: HYDRALAZINE HCL50 MG PO (16:26)
[2017-01-26] MEDS ORDERED: LANTUS100 U/ML SUBQ (16:29)
[2017-01-26] MEDS ORDERED: NOVOLOG100 UNITS/ SUBQ (16:33)
[2017-01-26] MEDS ORDERED: ASPIRIN81 MG PO (16:36)
[2017-01-26] MEDS ORDERED: ISOSORBIDE DINI30 MG PO (16:40)
[2017-01-27 13:38] LABS: CALCIUM SERUM 8.1 mg/dL (8.4-10.2); GLOM FILT RATE Estimated 25.9 mL/min (>60); POTASSIUM 4.1 mmol/L (3.5-5.1)
[2017-01-28 11:22] LABS: CALCIUM SERUM 8.4 mg/dL (8.4-10.2); GLOM FILT RATE Estimated 25.9 mL/min (>60); POTASSIUM 4.2 mmol/L (3.5-5.1)
[2017-01-28] MEDS ORDERED: LOPRESSOR PO (18:20)
[2017-01-28] MEDS ORDERED: ATIVAN0.5 M1 PO (18:22)
[2017-01-28] MEDS ORDERED: ALBUTEROL0.63 MG/3 INH (18:23)
[2017-01-28] MEDS ORDERED: ZOLOFT50 MG PO (18:23)
== END 2017-01-28 20:06 | disposition home or self-care (01) | DRG 246 ==
LOC: CED 01:19 → CEDOF 06:32 → C3A PCU 16:30 → C5C 01-24 15:18
PROVIDERS: Family Medicine; Internal Medicine; Internal Medicine Cardiovascular Disease; Internal Medicine Nephrology; Physician Assistant Medical; Student in an Organized Health Care Education/Training Program
PROC: B24BYZZ Ultrasonography of Heart with Aorta using Other Contrast (ICD-10-PCS; 2017-01-17)
PROC: 05H633Z Insertion of Infusion Device into Left Subclavian Vein, Percutaneous Approach (ICD-10-PCS; principal; 2017-01-23)
PROC: B547ZZA Ultrasonography of Left Subclavian Vein, Guidance (ICD-10-PCS; 2017-01-23)
PROC: 027135Z Dilation of Coronary Artery, Two Arteries with Two Drug-eluting Intraluminal Devices, Percutaneous Approach (ICD-10-PCS; 2017-01-24)
PROC: B211YZZ Fluoroscopy of Multiple Coronary Arteries using Other Contrast (ICD-10-PCS; 2017-01-24)
PROC: B215YZZ Fluoroscopy of Left Heart using Other Contrast (ICD-10-PCS; 2017-01-24)
PROC: 4A023N8 Measurement of Cardiac Sampling and Pressure, Bilateral, Percutaneous Approach (ICD-10-PCS; 2017-01-24)
DX: I13.0 Hypertensive heart and chronic kidney disease with heart failure and stage 1 through stage 4 chronic kidney disease, or unspecified chronic kidney disease (principal); I50.31 Acute diastolic (congestive) heart failure; J96.01 Acute respiratory failure with hypoxia; J90 Pleural effusion, not elsewhere classified; N17.9 Acute kidney failure, unspecified; J44.1 Chronic obstructive pulmonary disease with (acute) exacerbation; E87.2 Acidosis; J44.0 Chronic obstructive pulmonary disease with (acute) lower respiratory infection; I69.351 Hemiplegia and hemiparesis following cerebral infarction affecting right dominant side; N39.0 Urinary tract infection, site not specified; E03.9 Hypothyroidism, unspecified; E78.5 Hyperlipidemia, unspecified; F03.90 Unspecified dementia, unspecified severity, without behavioral disturbance, psychotic disturbance, mood disturbance, and anxiety; I27.2 Other secondary pulmonary hypertension; I08.1 Rheumatic disorders of both mitral and tricuspid valves; Z85.3 Personal history of malignant neoplasm of breast; E66.9 Obesity, unspecified; Z90.49 Acquired absence of other specified parts of digestive tract; Z90.710 Acquired absence of both cervix and uterus; Z88.2 Allergy status to sulfonamides; Z91.018 Allergy to other foods; J20.9 Acute bronchitis, unspecified; E11.65 Type 2 diabetes mellitus with hyperglycemia; K21.9 Gastro-esophageal reflux disease without esophagitis; G47.33 Obstructive sleep apnea (adult) (pediatric); G40.909 Epilepsy, unspecified, not intractable, without status epilepticus; N18.2 Chronic kidney disease, stage 2 (mild); E11.21 Type 2 diabetes mellitus with diabetic nephropathy; I25.119 Atherosclerotic heart disease of native coronary artery with unspecified angina pectoris; I25.5 Ischemic cardiomyopathy; B95.8 Unspecified staphylococcus as the cause of diseases classified elsewhere; Z79.4 Long term (current) use of insulin; Z68.33 Body mass index [BMI] 33.0-33.9, adult
CPT/HCPCS: 36600; 51702; 70450; 71010; 71020; 71250; 76770; 78452; 78582; 80048; 80053; 80061; 80076; 80200; 80202; 81003; 82010; 82308; 82550; 82553; 82570; 82803; 82810; 82947; 83036; 83605; 83735; 83880; 84156; 84443; 84484; 85025; 85027; 85347; 85610; 85730; 87040; 87086; 87088; 87186; 87804; 89190; 93005; 93017; 93306; 94640; 94660; 94760; 96374; 97110; 97116; 97162; 97164; 97166; 97530; 97535; 99291; A9500; A9540; A9567; C1725; C1769; C1874; C1887; C1894; G8978-GP; G8979-GP; G8987-GO; G8988-GO; G8989-GO; J0461; J1250; J1644; J1650; J1815; J1940; J2060; J2250; J2270; J2405; J2543; J2550; J2920; J3010; J3260; J3370; J3475; J3490

== ENCOUNTER 2017-03-31 01:16 | Inpatient (IN) | payer MEDICARE ==
--- NOTE | ~2017-03-31 | HP ---
Unit #: [id number] #: [id number] Patient: TYLER ATWOOD [id number] [address] [address] [id number] I MR#: [id number] NAME: TYLER ATWOOD ROOM: 85563 Age: 61 Sex: F Admission Date: 03/31/2017 : 1955 Attending Physician: Mariama Miller M.D. Primary Care Physician: Beatris Garcia M.D. HISTORY AND PHYSICAL CHIEF COMPLAINT Decompensated congestive heart failure. HISTORY This 61-year-old female with history of previous CVA, hypertension, AODM, ischemic cardiomyopathy, is admitted for congestive heart failure and shortness of breath. Patient states that she was well until yesterday when she developed shortness of breath worse when lying down, associated with pedal edema. Denies other symptoms with the above. EMS was called and brought this patient to this ER with a nonrebreather, which has been changed to 2 L of nasal cannula. Patient was given 20 mg of IV Lasix for congestive heart failure. Her serum glucose was 599 and she was given 8 units of IV regular insulin, current glucose is 482. The patient states that she is compliant with medicines, although her daughter injects her insulin. She required decontamination in our ER for bedbugs as well. PAST MEDICAL HISTORY 1. 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 The patient was admitted on three other occasions for increasing right-sided weakness, felt to be related to unmasking of her prior CVA. Usually precipitated by UTIs. 2. Episode of confusion requiring admission with diagnosis of seizure disorder. 3. Toxic metabolic encephalopathy. 4. Ischemic cardiomyopathy. I'm told that the ejection fraction is 38% and patient recently required two drug-eluting stents but I do not have the cardiac catheterization report. 5. Breast cancer, status post right mastectomy. 6. Pleural effusions. 7. AODM diagnosed 08/2005. 8. Hypertension. 9. Hypothyroidism. 10. GERD. 11. Seizure disorder. 12. Likely early dementia. 13. Anxiety disorder. 14. Labial and gluteal abscess requiring I and D. 15. Total abdominal hysterectomy. 16. Bladder repair x2. 17. Open cholecystectomy. 18. Breast cancer, status post right mastectomy. 19. Extensive lumbar spine surgery and katrin placement. 20. Skin grafting. Unit #: [id number] #: [id number] Patient: TYLER ATWOOD 21. Right mastectomy and reconstructive breath surgery. ALLERGIES Shark liver oil, phenylephrine, petroleum, cocoa butter, Bactrim, mercury, witch antonio, strawberries, and Levemir. HOME MEDICATIONS Med rec list. NovoLog 25 units t.i.d. before meals, aspirin 81 mg daily; Lopressor 50 mg b.i.d.; Ativan 0.5 mg t.i.d. as needed; Zoloft 50 mg q.h.s.; Vimpat 10 mg b.i.d.; Zantac 150 mg b.i.d.; Lipitor 80 mg q.h.s.; Lantus 55 units subcu q.h.s.; Plavix 75 mg daily; Imodium b.i.d. p.r.n.; Glucotrol 5 mg b.i.d.; iron 325 mg daily; Synthroid 0.25 mg daily; albuterol nebulizer t.i.d. FAMILY HISTORY CAD, diabetes mellitus, hypertension, malignancy of the brain. SOCIAL HISTORY The patient lives with her jayden Herring and her family. Lifelong nonsmoker and does not drink alcohol. REVIEW OF SYSTEMS Notable for shortness of breath, orthopnea, pedal edema, CVA with right-sided weakness, breast cancer, AODM, hypertension, hypothyroidism, GERD, ischemic cardiomyopathy, and above mentioned surgeries. All other systems were reviewed and are otherwise negative. PHYSICAL EXAMINATION GENERAL: Pleasant 61-year-old female currently in no acute distress. VITAL SIGNS: Temperature 98.1, pulse 67, respirations 24, blood pressure 182/88, O2 saturation is currently 96% on 2 L of oxygen. HEENT: Eyes - PERRLA, extraocular muscles are intact. Pharynx is benign. Dry mucosal membranes. NECK: Supple without adenopathy or thyromegaly. CHEST: Actually fairly clear at present after 20 IV of Lasix. CARDIAC: Normal S1 and S2. Very soft systolic murmur. ABDOMEN: Bowel sounds are present. Well healed scars are noted, nontender, no hepatosplenomegaly or masses. EXTREMITIES: With mild edema. Pedal pulses are present. NEUROLOGIC: Patient is awake, alert and oriented. Her cranial nerves are intact. She is mildly weak on the right side as compared to the left. DIAGNOSTIC STUDIES ADMISSION LABS: Hematocrit 36.1, white blood count is 10.6, normal platelet count. SMA 12 - glucose 599, BUN 28, sodium 130, chloride 97, albumin is 3.1. BNP is 600. Cardiac markers are negative. IMAGING STUDIES: Chest x-ray - moderate congestive heart failure with likely small pleural effusions. CARDIOLOGY STUDIES: EKG - sinus rhythm rate 66. ASSESSMENT 1. Decompensated systolic/diastolic congestive heart failure with history of ischemic cardiomyopathy. 2. Uncontrolled type 2 diabetes mellitus. 3. Accelerated hypertension. 4. CVA and seizure disorder. Unit #: [id number] #: [id number] Patient: TYLER ATWOOD 5. Breast cancer, status post right mastectomy. 6. Hypothyroidism. 7. GERD. 8. Bed bugs decontaminated in the ER. PLANS 1. IV Lasix, nitropaste, serial cardiac enzymes, continue usual cardiac medications. Will obtain I's and O's and daily weights. 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 2. Glucose control. 3. DVT prophylaxis. Dictated by Mariama Miller M.D. AML/ts TD: 03/31/2017 06:07 JOB #: [id number] HISTORY AND PHYSICAL Page 1 of 1 X Maraima Miller MD X HISTORY AND PHYSICAL
--- NOTE | ~2017-03-31 | EKG ---
PATIENT: TYLER ATWOOD UNIT #: [id number] Ventricular Rate: 66 BPM Atrial Rate: 66 BPM P-R Interval: 110 ms QRS Duration: 96 ms Q-T Interval: 444 ms QTC Calculation(Bezet): 465 ms P [place]: 35 degrees Calculated R [place]: 44 degrees Calculated T [place]: 25 degrees Diagnosis Line: Sinus rhythm with short NE Diagnosis Line: Otherwise normal ECG Diagnosis Line: When compared with ECG of 30-JAN-2017 10:56, Diagnosis Line: T wave amplitude has decreased in Anterior leads Diagnosis Line: Confirmed by BLAIRE MCLEAN MD ([id number]) on 03/31/2017 Diagnosis Line: 6:07:25 PM INTERPRETING MD: CARIDAD SALCEDO
--- NOTE | ~2017-03-31 | DS ---
Unit #: [id number] #: [id number] Patient: TYLER ATWOOD [id number] [address] [address] [id number] I MR#: [id number] NAME: TYLER ATWOOD ROOM: 548 Age: 61 Sex: F Admission Date: 03/31/2017 : 1955 Discharge Date: Attending Physician: Haley Perez M.D. Primary Care Physician: Beatris Garcia M.D. DISCHARGE SUMMARY DISCHARGE DIAGNOSES 1. Acute on chronic systolic and diastolic heart failure. 2. Diabetes mellitus type 2, uncontrolled. 3. Abdominal pain with nausea and vomiting, likely secondary to gastritis. 4. Acute kidney injury on chronic kidney disease stage 3. 5. Diabetes mellitus type 2, uncontrolled. 6. Hypertension, uncontrolled. 7. Mild protein malnutrition. 8. Mild erosive gastritis of the gastroesophageal junction. 9. Gastroesophageal reflux disease. 10. Hypothyroidism. 11. History of breast cancer, status post mastectomy. 12. History of seizures. 13. Bed bugs during this hospitalization course, decontaminated in emergency room. 14. History of toxic metabolic encephalopathy and pleural effusions. 15. Moderate protein malnutrition. 16. Hypocalcemia. CONSULTATIONS 1. Dr. Carson. 2. Dr. Aviles. PROCEDURE Patient had EGD which shows few erosions at the GE junction, otherwise negative. DIAGNOSTIC STUDIES LABORATORY: Sodium 137, potassium 4.1, creatinine 1.4, glucose 250. Albumin 2.5. WBC 8.7, hemoglobin 9.2, platelets 254,000. IMAGING: Chest x-ray shows moderate interstitial edema. ALLERGIES Shark liver oil, phenylephrine, petrolatum, cocoa butter, sulfamethoxazole, trimethoprim, mercury, insulin Levemir. DISCHARGE MEDICATIONS 1. Albuterol 3 mL nebulization four times daily. 2. Vimpat 100 mg p.o. b.i.d. 3. Zoloft 50 mg daily. 4. Loperamide 2 mg p.o. b.i.d. p.r.n. diarrhea. 5. Phenergan 12.5 q.8 p.r.n. nausea. Unit #: [id number] #: [id number] Patient: TYLER ATWOOD 6. Ativan 0.5 mg three times daily. 7. Lopressor 25 p.o. b.i.d. 8. Lasix 40 in the morning and 20 at 5 p.m. 9. Lipitor 80 daily. 10. Hydralazine 25 three times daily. 11. Lantus 55 units at 10 p.m. 12. NovoLog low dose sliding scale a.c. and at bedtime. 13. NovoLog 15 units subcutaneous three times daily with meals. 14. Reglan 5 mg three times daily before meals. 15. Aspirin 81 daily. 16. Plavix 75 daily. 17. Glucotrol 5 mg p.o. b.i.d. before meals. 18. Synthroid 25 mcg p.o. daily. 19. Imdur ER 30 daily. 20. Protonix 40 daily. HOSPITALIZATION COURSE A 61 year old admitted because of shortness of breath. Acute on chronic systolic and diastolic heart failure: Patient received IV diuretics because of increased creatinine. IV has been changed to p.o. She will continue the Lasix 40 in the morning and 20 in the evening. She is not on ASHWIN or ARB because of acute kidney injury. Abdominal pain with nausea and vomiting: EGD has been done which shows mild erosions of the (1) area. The patient was started on Protonix. For her nausea, patient started on Zofran, Phenergan, and Reglan. She will be discharged on Phenergan and Reglan and follow with Dr. Aviles as an outpatient. KUB is negative. Diabetes mellitus type 2: Uncontrolled. Adjusted her insulin. Hypertension: Uncontrolled. Adjusted her medicines. Currently, blood pressure stable. Acute kidney injury, likely secondary to CHF: Patient is on diuretics. Creatinine is stable now. Mild protein malnutrition: Continue with high-protein diet. DISPOSITION Patient will be discharged home with home health. FOLLOWUP 1. Follow with family physician in one week time. 2. Follow with Dr. Epifanio Aviles in two weeks' time. 3. Follow with Dr. Carson in three to four weeks' time. 4. The patient needs BMP on a Tuesday which is April 12, 2017 and follow with PCP with the results. Discharge time taken is 35 minutes. Dictated by... Haley Perez M.D. Unit #: [id number] #: [id number] Patient: RAITYLER Perkins TD: 04/05/2017 11:34 JOB #: [id number] DISCHARGE SUMMARY Page 1 of 1 X Haley Perez MD X DISCHARGE SUMMARY
--- NOTE | ~2017-03-31 | CO ---
Unit #: [id number] #: [id number] Patient: TYLER ATWOOD [id number] [address] [address] [id number] I MR#: [id number] NAME: TYLER ATWOOD ROOM: 548 Age: 61 Sex: F Admission Date: 03/31/2017 : 1955 Attending Physician: Haley Perez M.D. Primary Care Physician: Beatris Garcia M.D. Consultation Date: 04/04/2017 CONSULTATION REPORT REASON FOR CONSULTATION Nausea and abdominal pain. HISTORY OF PRESENT ILLNESS Ms. Atwood is a very pleasant 61-year-old white female, who was admitted with increasing shortness of breath and decompensating congestive heart failure. The patient is admitted 4 days ago due to the increasing shortness of breath. During her hospitalization, she has mentioned episodic nausea as well as diffuse upper abdominal pain. She also was admitted with uncontrolled diabetes with a blood glucose of 599 and 482 respectively then glycohemoglobin of 12. She is overall feeling better in terms of heart failure. PAST MEDICAL HISTORY Significant for toxic metabolic encephalopathy, ischemic cardiomyopathy, coronary artery disease, type 2 diabetes with poor control hypertension, hypothyroidism, GERD, seizure disorder, early dementia, anxiety disorder. PAST SURGICAL HISTORY Included total abdominal hysterectomy, bladder repair, open cholecystectomy, right mastectomy for breast cancer, skin grafting, spinal surgery. ALLERGIES She is allergic to multiple medicines, cocoa butter, Bactrim, mercury, witch antonio, strawberries, Levemir, phenylephrine, petroleum, shark liver oil. HOME MEDICATIONS List included NovoLog insulin, aspirin, Lopressor, Ativan, Zoloft, Vimpat, Zantac, Lipitor, Lantus insulin, Plavix, Imodium, Glucotrol, iron, Synthroid, albuterol. FAMILY HISTORY Significant for hypertension, diabetes, and coronary artery disease. No family history of colon cancer or liver disease. SOCIAL HISTORY The patient lives with her jayden Herring and her family, lifelong nonsmoker, and does not drink alcohol. REVIEW OF SYSTEMS Detailed review of organ systems does not reveal any recent weight loss. No history of fever, chills, history of headache, seizures, chest pain, or Unit #: [id number] #: [id number] Patient: TYLER ATWOOD syncope. No history of cough, expectoration, or hemoptysis. There is history of increasing shortness of breath. No history of dysuria, hematuria, or pyuria. PHYSICAL EXAMINATION GENERAL: She is alert and oriented, and appears comfortable. VITAL SIGNS: Stable with a temperature of 98.7, pulse is 54 per minute and regular, respiratory rate is 18, blood pressure is 114/49. She weighs 181 pounds and appears overweight. HEENT: She has mild pallor. There being no icterus or lymphadenopathy. Grade 2 pitting peripheral edema. CARDIOVASCULAR: Normal heart sounds. No murmurs on auscultation. LUNGS: Reveal normal breath sounds. Good air entry. ABDOMEN: Soft, obese, nontender. Liver and spleen are not palpable. Bowel sounds normal. DIAGNOSTIC STUDIES LABORATORY RESULTS: Show a hemoglobin of 9.1, white count was 11,000 three days ago and now it is 6800, platelet count is normal. INR is 1.0. Stool chemistry shows a BUN and creatinine 14 and 0.7 on admission and 30 and 1.4 today. Albumin is 2.5. LFTs are normal. Glycohemoglobin is between 11 and 12. CLINICAL IMPRESSION The patient with multiple medical problems primarily congestive heart failure, coronary artery disease, diabetes. The differential diagnosis is nausea-induced gastroparesis, drug-induced or medication induced nausea, as well as intrinsic peptic ulcer disease. A diagnostic endoscopy is in order and will be scheduled later today. The pros and cons of procedure, potential risks, complications were discussed with the patient and she was reassured. Thank you for asking me to see this pleasant woman. I appreciate the consult. Dictated by... Chidi Singh/deana TD: 04/05/2017 05:30 JOB #: [id number] CONSULTATION REPORT Page 1 of 1 X Epifanio Aviles MD CONSULTATION REPORT
--- NOTE | ~2017-03-31 | CO ---
Unit #: [id number] #: [id number] Patient: TYLER ATWOOD [id number] [address] [place], [place] [address] [id number] I MR#: [id number] NAME: TYLER ATWOOD ROOM: 548 Age: 61 Sex: F Admission Date: 03/31/2017 : 1955 Attending Physician: Haley Perez M.D. Primary Care Physician: Beatris Garcia M.D. Consultation Date: 03/31/2017 CONSULTATION REPORT REASON FOR CONSULTATION Congestive heart failure. HISTORY OF PRESENT ILLNESS This is a 61-year-old white female, known to our group with a past medical history of chronic diastolic congestive heart failure with a left ventricular ejection fraction of 50% to 55%, moderate mitral regurgitation, mild pulmonary hypertension, and CAD status post PCI and drug-eluting stent in the first obtuse marginal, left circumflex, and the mid LAD on 01/24/2017. RCA was occluded and not dilated. Additional past medical history includes hypertension, hyperlipidemia, diabetes, previous cerebrovascular accident and seizure disorder. The patient was recently seen by Cardiology in 01/2017 for shortness of breath and congestive heart failure. She was diagnosed with bilateral zedajwjq-pi-hhlbq pleural effusions and bilateral atelectasis. Thoracentesis was attempted, but the patient refused according to documentation. Eventually thoracentesis was attempted, but there was not enough fluid to be drawn off. The patient was sent home without diuretics according to discharge summary, due to elevated creatinine. She presented back to the emergency department on 03/31/2017 with complaints of shortness of breath for one day. There are no reports of PND or orthopnea. She admits to some swelling in the legs. She denies fever or chills. There are no reports of chest pain, palpitations, or syncope. However, she does admit to some occasional dizziness. In the emergency department, her temperature was 98.1, pulse 67, and blood pressure 182/88 with an O2 saturation of 97%. She was given 20 mg IV Lasix and 8 units of regular insulin. She was admitted for decompensated congestive heart failure, uncontrolled diabetes, and accelerated hypertension. She was continued on IV diuretics and started on topical nitrates. Cardiology was consulted for further management. PAST MEDICAL HISTORY 1. Recent admission to [facility] on 01/2017 for acute on chronic diastolic congestive heart failure, bilateral ouyjxjwt-jd-xrqui pleural effusions, bilateral atelectasis, and acute kidney injury on chronic kidney disease. Also treated for toxic metabolic encephalopathy. 2. Coronary artery disease, status post left cardiac catheterization on 01/24/[address] [facility] [address] Ovalle which revealed left main normal. LAD 80%. Distal to the first septal and first diagonal branch. Distal LAD normal. First diagonal 60% mid segment stenosis. First marginal branch of the left circumflex 99%. 30% to 40% Unit #: [id number] #: [id number] Patient: TYLER ATWOOD lesion in the mid segment beyond which the vessels normal with INDER-3 flow. Right coronary artery 99% at the junction of the proximal third and distal two-thirds. Mid right coronary artery with long segment 99% stenosis followed by 100% occlusion of the junction of the proximal two thirds and distal one third. PDA branch fills faintly via retrograde left to right collaterals. Status post PCI and drug-eluting stent in the first marginal branch of the left circumflex and mid LAD. Right coronary artery not dilated. No LV gram due to renal function. 3. 2D echocardiogram on 01/17/2017 revealed an ejection fraction of 50% to 55%. Mild LVH. Cannot rule out inferior wall hypokinesis. Mildly dilated left atrium. Moderate mitral regurgitation. Mild tricuspid regurgitation. Right ventricular systolic pressure 42 mmHg. No pericardial effusion. 4. Hypertension. 5. Hyperlipidemia. 6. Diabetes mellitus, type 2. 7. Obesity. 8. Hypothyroidism. 9. History of breast cancer, status post right mastectomy. 10. History of pneumonia and urinary tract infection in 11/2016. 11. Mild dementia. 12. Cerebrovascular accident in 2013. 13. Seizure disorder. 14. Chronic anemia. 15. Nonsmoker. PAST SURGICAL HISTORY 1. Cardiac catheterization. 2. Labia and gluteal abscess requiring I and D. 3. Total abdominal hysterectomy. 4. Bladder repair x2. 5. Open cholecystectomy. 6. Extensive lumbar spine surgery and katrin placement. 7. Skin grafting. 8. Right mastectomy and reconstructive breast surgery. MEDICATIONS Plavix 75 mg p.o. daily, loperamide 2 mg p.o. b.i.d., glipizide 5 mg p.o. b.i.d., iron 325 mg p.o. daily, levothyroxine 25 mcg p.o. daily, NovoLog 25 units subcu t.i.d. before meals, aspirin 81 mg p.o. daily, metoprolol tartrate 50 mg p.o. b.i.d., Ativan 0.5 mg p.o. t.i.d. p.r.n., Zoloft 50 mg p.o. at bedtime, Vimpat 100 mg p.o. b.i.d., Zantac 150 mg p.o. b.i.d., Lipitor 80 mg p.o. at bedtime, Lantus 55 units subcu at bedtime, albuterol 3 mL inhalation q.i.d. ALLERGIES 1. Shark liver oil. 2. Phenylephrine. 3. Petroleum. 4. [place] butter. 5. Bactrim. 6. Mercury. 7. Witch antonio. 8. [place]. 9. Levemir. SOCIAL HISTORY The patient lives in a private residence with family. She is a nonsmoker. Unit #: [id number] #: [id number] Patient: TYLER ATWOOD There are no reports of alcohol or illicit drug use. FAMILY HISTORY Significant for hypertension, diabetes, and strokes. REVIEW OF SYSTEMS Ten-point review of systems negative except for details noted above in HPI. PHYSICAL EXAMINATION VITAL SIGNS: Temperature 98.2, pulse 65, blood pressure 181/65. CONSTITUTIONAL: This is a 61-year-old white female, in no acute distress. SKIN: Warm and dry. NECK: Supple. No jugular vein distention. No hepatojugular reflux. Normal carotid upstrokes. No carotid bruits auscultated. HEART: S1 and S2. Regular rate and rhythm. No murmurs, rubs, or gallops. LUNGS: Bilateral breath sounds have decreased breath sounds. Rales in the left base. No rhonchi or wheezes. ABDOMEN: Soft, nontender, and nondistended. Positive bowel sounds auscultated x4 quadrants. No ascites noted. EXTREMITIES: Bilateral lower extremities have 2+ pitting edema. DP and PT pulses are 2+. Capillary refill is less than 2 seconds. DIAGNOSTIC STUDIES IMAGING STUDIES: Chest x-ray on 03/31/2017 revealed moderate interstitial edema and presume small pleural effusions. LABORATORY RESULTS: White blood cell count 10.6, hemoglobin 11.5, hematocrit 36.1, platelets 338. Sodium 130, potassium 3.8, chloride 97, CO2 of 24, BUN 28, creatinine 1.2, glucose 599. AST 12, ALT 14, alkaline phos 88, albumin 3.1. Troponin 0.03 and 0.03. CARDIOVASCULAR STUDIES: EKG reveals normal sinus rhythm. Nondiagnostic Q waves in the inferior leads. IMPRESSION 1. Acute on chronic diastolic congestive heart failure. 2. Left ventricular ejection fraction 50% to 55% with moderate mitral regurgitation, mild tricuspid regurgitation, and mild pulmonary hypertension on 2D echocardiogram in 01/2017. 3. Coronary artery disease, status post percutaneous coronary intervention and drug-eluting stent in the first obtuse marginal, left circumflex, and mid left anterior descending on 01/24/2017. Right coronary artery totally occluded, not dilated. 4. Hypertension, uncontrolled. 5. Hyperlipidemia. 6. Diabetes mellitus, type 2, uncontrolled. 7. History of cerebrovascular accident in 2013. 8. Seizure disorder. 9. Hypothyroidism. 10. Obesity. 11. Chronic anemia. 12. Chronic kidney disease. PLAN 1. The patient presented to hospital with complaints of shortness of breath. She was admitted and Cardiology was consulted for further management. Unit #: [id number] #: [id number] Patient: TYLER ATWOOD 2. We will check LV function as CHF is disproportionate to her systolic function and RV pressures were high 2 months ago. 3. We will start hydralazine and nitrates for afterload reduction. 4. We will start spironolactone and recheck BMP in a.m. 5. The patient has been instructed to get out of bed and the chair as tolerated. 6. She has been placed on a fluid restriction. Strict intake and output. 7. Beta-jennifer has been decreased due to decompensated failure. 8. There are no reports of chest pain. An EKG reveals no acute findings. The patient will be continued on dual anti-platelet therapy and statin. Dictated by... Tyesha Lassiter APRN for Chidi Thomas TD: 04/01/2017 23:24 JOB #: [id number] CONSULTATION REPORT Page 1 of 1 X X CONSULTATION REPORT
--- NOTE | ~2017-03-31 | CR72 ---
[facility] A Service of [facility] & [facility] RADIOLOGY TEXT RESULTS PATIENT: TYLER ATWOOD LOCATION: [place] [address]- : [birth year] UNIT #: [id number] AGE: [address]: Haley Perez MD SEX: F ORDER DR: [id number] [facility] [address] [place], [place] [address] [id number] I MR#: [id number] Acc #: [id number] NAME: TYLER ATWOOD : 1955 SEX: F STUDY DATE/TIME: 03/31/2017 3:07 UNIT: [facility] ROOM: [facility] STUDY DESCRIPTION: CR Chest Single View Portable Attending Physician: Haley Perez M.D. Ordering Physician: Cruzito Burger M.D. Primary Care Physician: Beatris Garcia M.D. MEDICAL IMAGING REPORT This report is preliminary unless electronic signature is present EXAM Single view chest INDICATION Shortness of air and weakness for 1 day. FINDINGS Single portable AP view of the chest compared to 01/30/2017. Cardiac silhouette is at the upper lungs are normal. There is bilateral interstitial airspace opacity most consistent pulmonary edema. There is blunting of costophrenic angles suggesting small pleural effusions. IMPRESSION Moderate interstitial edema and presumed small pleural effusions Dictated by... Tyrone Antoine M.D. THIS IS AN ELECTRONICALLY VERIFIED REPORT Tyrone Antoine M.D. at 04/05/2017 7:04 AM NITIN/britton TD: 03/31/2017 03:52 JOB #: [id number] MEDICAL IMAGING REPORT Page 1 of 1 COPY
--- NOTE | ~2017-03-31 | CR4 ---
[facility] A Service of [facility] & [facility] RADIOLOGY TEXT RESULTS PATIENT: TYLER ATWOOD LOCATION: [facility] [id number] : [birth year] UNIT #: [id number] AGE: [address]: Haley Perez MD SEX: F ORDER DR: [id number] [facility] [address] [place], [place] [address] [id number] I MR#: [id number] Acc #: [id number] NAME: TYLER ATWOOD : 1955 SEX: F STUDY DATE/TIME: 04/02/2017 12:16 UNIT: [facility] ROOM: [facility] STUDY DESCRIPTION: CR Abdomen Flat Upright or Dec Attending Physician: Haley Perez M.D. Ordering Physician: Haley Perez M.D. Primary Care Physician: Beatris Garcia M.D. MEDICAL IMAGING REPORT This report is preliminary unless electronic signature is present EXAM Supine AP view of the abdomen COMPARISON August 11, 2016 INDICATION 61-year-old female with nausea and abdominal pain today. History of right breast cancer treated with mastectomy. Diabetes. FINDINGS There is grossly stable scoliosis of the lumbar spine. Posterior spinal fusion hardware is grossly stable spanning from L3-L5. No evidence of hardware complication. Disc spacer material is seen at L3-L4 and L4-L5, stable. Bilateral pelvic phleboliths are noted. No evidence of spinal fusion hardware complication. There is no free subdiaphragmatic air. Not well evaluated on the current exam due to some motion. There appears to be interstitial prominence throughout the lungs which may be artifactually related to motion but there is cardiomegaly and pulmonary vascular congestion cannot be excluded. There are somewhat asymmetric opacities in the right lung base which may reflect atelectasis or pneumonia. There is a moderate stool burden. There is a gas-distended bowel loop in the left lower abdomen measuring up to 2.8 cm. Gas is noted in the distal colon. IMPRESSION 1. Nonspecific mild gaseous distension of a single small bowel loop without pathologic dilatation. This is a nonspecific finding. No convincing evidence of high-grade mechanical bowel obstruction. There is a moderate diffuse colonic stool burden. No evidence of bowel perforation. 2. Questionable cardiomegaly with questionable interstitial opacities throughout the lungs, not well evaluated due to motion. There also do appear to be asymmetric opacities in the right lung base which STS. [facility] A Service of [facility] & [facility] RADIOLOGY TEXT RESULTS PATIENT: TYLER ATWOOD LOCATION: [facility] 548- : [birth year] UNIT #: [id number] AGE: [address]: Haley Perez MD SEX: F ORDER DR: could reflect atelectasis or possibly pneumonia. Appearance is likely not significantly changed from radiograph of the chest performed earlier today. Dictated by... Uday Canchola M.D. THIS IS AN ELECTRONICALLY VERIFIED REPORT Uday Canchola M.D. at 04/10/2017 1:16 PM SANDRA/taylor TD: 04/02/2017 15:00 JOB #: [id number] MEDICAL IMAGING REPORT Page 1 of 1 COPY
--- NOTE | ~2017-03-31 | OR ---
Unit #: [id number] #: [id number] Patient: TYLER ATWOOD [id number] [place] [address] [id number] I MR#: [id number] NAME: TYLER ATWOOD ROOM: 548 Date of Procedure: 04/04/2017 Admission Date: 03/31/2017 Surgeon: Epifanio Aviles M.D. : 1955 Attending Physician: Haley Perez M.D. Primary Care Physician: Beatris Garcia M.D. OPERATIVE REPORT PREOPERATIVE DIAGNOSES Nausea and abdominal pain. PROCEDURE PERFORMED Upper gastrointestinal endoscopy. POSTOPERATIVE DIAGNOSIS The patient had few erosions in the GE junction. Otherwise, examination normal up to third part of duodenum. RECOMMENDATIONS 1. Suggest resume healthy heart CCD diet. 2. Empiric Reglan 5 mg IV t.i.d. about 15 to 20 minutes before meals. This should be only short term. The etiology of nausea is most likely multifactorial probably due to combination of medications, diabetes, and renal disease. SEDATION USED MAC. DESCRIPTION OF PROCEDURE Following detailed explanation of potential risks and complications of an upper endoscopy, namely perforation, bleeding, complication related to sedation, the patient was brought to GI lab and laid in the left lateral decubitus position. Lubricated tip of Olympus video upper endoscope was passed through the bite block into the proximal esophagus under direct vision. The entire esophageal mucosa was examined and appeared normal. There were occasional erosions at the Z-line in the distal esophagus. The scope was then advanced into the gastric cavity and the latter was insufflated. Mucosa of the fundus, body, and antrum were examined and appeared unremarkable. Pylorus was intubated with visualization of normal duodenal bulb and second and third part of the duodenum. Upon withdrawal and retroflexion, incisura, cardia, and greater curve were examined and no additional findings noted. The scope was withdrawn in the distal esophagus. Entire esophageal mucosa was examined all the way up to pharynx. No additional findings were noted. The patient tolerated the procedure without any postprocedure complications. Dictated by... Epifanio Aviles M.D. Unit #: [id number] #: [id number] Patient: TYLER ATWOOD AK/deana TD: 04/05/2017 04:39 JOB #: [id number] OPERATIVE REPORT Page 1 of 1 X Epifanio Aviles MD PROCEDURE OPERATIVE NOTE
[~2017-03-31 01:16] MED LIST changes: +ALBUTEROL0.63 MG/3 INH; +ATIVAN0.5 M1 PO; +HYDRALAZINE HCL50 MG PO; +ISOSORBIDE DINI30 MG PO; +LASIX PO; +LOPRESSOR PO; +ZOLOFT50 MG PO
[2017-03-31 03:19] LABS: POC - CKMB 1.6 ng/mL (0.0-7.9); POC - TROPONIN <0.05 ng/mL (<=0.05)
[2017-03-31 03:36] LABS: BASOPHIL# 0.1 X10e3 (0-0.3); BASOPHIL% 0.8 % (0-2.5); DIFF IND NO; EOSINOPHIL# 0.2 X10e3 (0-0.7); EOSINOPHIL% 1.9 % (0.0-7.0); HEMATOCRIT 36.1 % (35.0-45.0); HEMOGLOBIN 11.5 gm/dL (12.0-16.0); LYMPHOCYTE# 1.7 X10e3 (1.0-3.5); LYMPHOCYTE% 16.2 % (17.0-45.0); MEAN CELL VOLUME 86.6 FL (83-96); MEAN CORPUSCULAR HEMOGLOBIN 27.6 PG (28-34); MEAN CORPUSCULAR HGB CONC 31.9 g/dL (30-36); MEAN PLATELET VOLUME 8.2 FL (6.5-11.5); MONOCYTE# 0.4 X10e3 (0-1.0); MONOCYTE% 4.1 % (3.0-12.0); NEUTROPHIL# 8.2 X10e3 (1.5-7.1); PLATELET COUNT 338 X10e3 (140-420); RED BLOOD COUNT 4.17 X10e (3.90-5.30); RED CELL DISTRIBUTION WIDTH 14.7 % (11.0-15.5); WHITE BLOOD COUNT 10.6 X10e3 (4.0-10.5)
[2017-03-31 04:06] LABS: ALBUMIN SERUM 3.1 g/dL (3.5-5.0); BILIRUBIN, DIRECT 0.1 mg/dL (0.0-0.2); BILIRUBIN,INDIRECT 0.6 mg/dL (0.0-0.9); BILIRUBIN,TOTAL 0.7 mg/dL (0.2-2.0); BUN/CREATININE RATIO 23.33; CALCIUM SERUM 8.4 mg/dL (8.4-10.2); CREATININE SERUM 1.2 mg/dL (0.6-1.4); GLOM FILT RATE Estimated 48.1 mL/min (>60); POTASSIUM 3.8 mmol/L (3.5-5.1); PROTEIN TOTAL SERUM 6.2 g/dL (6.0-8.3)
[2017-03-31] MEDS ORDERED: METFORMIN HCL500 M1 PO (05:55)
[2017-03-31] MEDS ORDERED: LASIX PO (05:56)
[2017-03-31] MEDS ORDERED: HYDRALAZINE HCL50 MG PO (05:57)
[2017-03-31] MEDS ORDERED: IMDUR-ER30 M1 PO (05:59)
[2017-03-31 11:16] LABS: %MB 3.6 % (0.0-4.0); MB 2.5 ng/ml
[2017-03-31 15:38] LABS: %MB 2.5 % (0.0-4.0)
[2017-04-01 06:27] LABS: HEMATOCRIT 30.8 % (35.0-45.0); MEAN CELL VOLUME 85.1 FL (83-96); MEAN CORPUSCULAR HEMOGLOBIN 27.6 PG (28-34); MEAN CORPUSCULAR HGB CONC 32.5 g/dL (30-36); MEAN PLATELET VOLUME 8.1 FL (6.5-11.5); RED BLOOD COUNT 3.63 X10e (3.90-5.30); RED CELL DISTRIBUTION WIDTH 14.6 % (11.0-15.5); WHITE BLOOD COUNT 10.9 X10e3 (4.0-10.5)
[2017-04-01 06:59] LABS: ALBUMIN SERUM 2.6 g/dL (3.5-5.0); BILIRUBIN,TOTAL 0.5 mg/dL (0.2-2.0); BUN/CREATININE RATIO 23.57; CALCIUM SERUM 8.1 mg/dL (8.4-10.2); CREATININE SERUM 1.4 mg/dL (0.6-1.4); GLOM FILT RATE Estimated 39.9 mL/min (>60); MAGNESIUM 1.8 mg/dL (1.6-3.0); POTASSIUM 3.6 mmol/L (3.5-5.1)
[2017-04-02 06:36] LABS: HEMATOCRIT 28.1 % (35.0-45.0); HEMOGLOBIN 9.2 gm/dL (12.0-16.0); MEAN CELL VOLUME 85.3 FL (83-96); MEAN CORPUSCULAR HGB CONC 32.9 g/dL (30-36); MEAN PLATELET VOLUME 8.3 FL (6.5-11.5); RED BLOOD COUNT 3.3 X10e (3.90-5.30); RED CELL DISTRIBUTION WIDTH 14.5 % (11.0-15.5); WHITE BLOOD COUNT 8.7 X10e3 (4.0-10.5)
[2017-04-02 07:00] LABS: BUN/CREATININE RATIO 23.52; CALCIUM SERUM 8.1 mg/dL (8.4-10.2); CREATININE SERUM 1.7 mg/dL (0.6-1.4); GLOM FILT RATE Estimated 31.6 mL/min (>60); POTASSIUM 4.2 mmol/L (3.5-5.1)
[2017-04-03 05:54] LABS: HEMATOCRIT 28.4 % (35.0-45.0); HEMOGLOBIN 9.2 gm/dL (12.0-16.0); MEAN CELL VOLUME 85.4 FL (83-96); MEAN CORPUSCULAR HEMOGLOBIN 27.7 PG (28-34); MEAN CORPUSCULAR HGB CONC 32.5 g/dL (30-36); MEAN PLATELET VOLUME 8.5 FL (6.5-11.5); RED BLOOD COUNT 3.32 X10e (3.90-5.30); RED CELL DISTRIBUTION WIDTH 14.5 % (11.0-15.5)
[2017-04-03 06:53] LABS: BUN/CREATININE RATIO 22.5; CALCIUM SERUM 8.4 mg/dL (8.4-10.2); CREATININE SERUM 1.6 mg/dL (0.6-1.4); MAGNESIUM 2.2 mg/dL (1.6-3.0); POTASSIUM 4.4 mmol/L (3.5-5.1)
[2017-04-03 14:08] LABS: AMYLASE 14 U/L (0-46); LIPASE 18 U/L (22-51)
[2017-04-04 06:07] LABS: HEMATOCRIT 28.1 % (35.0-45.0); HEMOGLOBIN 9.1 gm/dL (12.0-16.0); MEAN CELL VOLUME 85.8 FL (83-96); MEAN CORPUSCULAR HEMOGLOBIN 27.8 PG (28-34); MEAN CORPUSCULAR HGB CONC 32.4 g/dL (30-36); MEAN PLATELET VOLUME 8.1 FL (6.5-11.5); RED BLOOD COUNT 3.27 X10e (3.90-5.30); RED CELL DISTRIBUTION WIDTH 14.4 % (11.0-15.5); WHITE BLOOD COUNT 6.8 X10e3 (4.0-10.5)
[2017-04-04 07:00] LABS: ALBUMIN SERUM 2.5 g/dL (3.5-5.0); BILIRUBIN,TOTAL 0.5 mg/dL (0.2-2.0); BUN/CREATININE RATIO 21.42; CALCIUM SERUM 8.3 mg/dL (8.4-10.2); CREATININE SERUM 1.4 mg/dL (0.6-1.4); GLOM FILT RATE Estimated 39.9 mL/min (>60); POTASSIUM 3.7 mmol/L (3.5-5.1)
[2017-04-05 05:33] LABS: HEMATOCRIT 28.6 % (35.0-45.0); HEMOGLOBIN 9.2 gm/dL (12.0-16.0); MEAN CELL VOLUME 86.1 FL (83-96); MEAN CORPUSCULAR HEMOGLOBIN 27.7 PG (28-34); MEAN CORPUSCULAR HGB CONC 32.2 g/dL (30-36); MEAN PLATELET VOLUME 8.1 FL (6.5-11.5); RED BLOOD COUNT 3.32 X10e (3.90-5.30); RED CELL DISTRIBUTION WIDTH 14.8 % (11.0-15.5); WHITE BLOOD COUNT 8.7 X10e3 (4.0-10.5)
[2017-04-05 06:33] LABS: ALBUMIN SERUM 2.5 g/dL (3.5-5.0); BILIRUBIN,TOTAL 0.6 mg/dL (0.2-2.0); CALCIUM SERUM 8.1 mg/dL (8.4-10.2); CREATININE SERUM 1.4 mg/dL (0.6-1.4); GLOM FILT RATE Estimated 39.9 mL/min (>60); POTASSIUM 4.1 mmol/L (3.5-5.1); PROTEIN TOTAL SERUM 5.2 g/dL (6.0-8.3)
[2017-04-05] MEDS ORDERED: PHENERGAN12.5 MG PO (15:53)
[2017-04-05] MEDS ORDERED: REGLAN5 MG PO (15:55)
[2017-04-05] MEDS ORDERED: LASIX20 MG PO (15:55)
[2017-04-05] MEDS ORDERED: PROTONIX PO (15:56)
[2017-04-05] MEDS ORDERED: NOVOLOG100 UNIT/1 SUBQ (16:01)
[2017-04-06] MEDS ORDERED: ALBUTEROL MININEB NEB (12:59)
[2017-04-06] MEDS ORDERED: ZOLOFT PO (12:59)
[2017-04-06] MEDS ORDERED: VIMPAT100 MG PO (12:59)
[2017-04-06] MEDS ORDERED: LOPERAMIDE HCL2 M1 PO (13:00)
[2017-04-06] MEDS ORDERED: ATIVAN PO (13:00)
[2017-04-06] MEDS ORDERED: LOPRESSOR PO (13:00)
[2017-04-06] MEDS ORDERED: LASIX20 MG PO (13:01)
[2017-04-06] MEDS ORDERED: LIPITOR80 MG PO (13:01)
[2017-04-06] MEDS ORDERED: APRESOLINE PO (13:01)
[2017-04-06] MEDS ORDERED: LASIX PO (13:01)
[2017-04-06] MEDS ORDERED: LANTUS SOL100 UNIT/1 SUBQ (13:02)
[2017-04-06] MEDS ORDERED: NOVOLOG FL100 UNIT/1 SUBQ (13:05)
[2017-04-06] MEDS ORDERED: NOVOLOG FL100 UNIT/1 (13:05)
[2017-04-06] MEDS ORDERED: REGLAN PO (13:06)
[2017-04-06] MEDS ORDERED: ASPIRIN81 M2 PO (13:06)
[2017-04-06] MEDS ORDERED: CLOPIDOGREL75 MG PO (13:06)
[2017-04-06] MEDS ORDERED: PROTONIX PO (13:06)
[2017-04-06] MEDS ORDERED: GLUCOTROL XL5 M1 PO (13:06)
[2017-04-06] MEDS ORDERED: IMDUR PO (13:06)
[2017-04-06] MEDS ORDERED: PHENERGAN PO (13:08)
[2017-04-06] MEDS ORDERED: SYNTHROID25 MCG PO (13:10)
== END 2017-04-05 18:41 | disposition home or self-care (01) | DRG 291 ==
LOC: CED 01:16 → C5B 05:45 → CEDOF 05:45 → CED 05:54 → CEDOF 08:00 → C5B 08:12 → CEDOF 08:12 → C5B 04-05 18:41
PROVIDERS: Emergency Medicine; Internal Medicine; Internal Medicine Gastroenterology; Nurse Practitioner Family
PROC: B24BYZZ Ultrasonography of Heart with Aorta using Other Contrast (ICD-10-PCS; 2017-04-01)
PROC: 0DJ08ZZ Inspection of Upper Intestinal Tract, Via Natural or Artificial Opening Endoscopic (ICD-10-PCS; principal; 2017-04-04 07:20)
DX: I13.0 Hypertensive heart and chronic kidney disease with heart failure and stage 1 through stage 4 chronic kidney disease, or unspecified chronic kidney disease (principal); I50.43 Acute on chronic combined systolic (congestive) and diastolic (congestive) heart failure; N17.9 Acute kidney failure, unspecified; E44.0 Moderate protein-calorie malnutrition; N18.3 Chronic kidney disease, stage 3 (moderate); E11.65 Type 2 diabetes mellitus with hyperglycemia; K25.9 Gastric ulcer, unspecified as acute or chronic, without hemorrhage or perforation; E03.9 Hypothyroidism, unspecified; Z86.73 Personal history of transient ischemic attack (TIA), and cerebral infarction without residual deficits; I25.5 Ischemic cardiomyopathy; Z85.3 Personal history of malignant neoplasm of breast; K21.9 Gastro-esophageal reflux disease without esophagitis; G40.909 Epilepsy, unspecified, not intractable, without status epilepticus; F41.9 Anxiety disorder, unspecified; Z90.710 Acquired absence of both cervix and uterus; Z90.49 Acquired absence of other specified parts of digestive tract; T14.8 Other injury of unspecified body region; W57.XXXA Bitten or stung by nonvenomous insect and other nonvenomous arthropods, initial encounter; E66.9 Obesity, unspecified; Z79.82 Long term (current) use of aspirin; Z79.4 Long term (current) use of insulin; E83.51 Hypocalcemia; Z68.34 Body mass index [BMI] 34.0-34.9, adult
CPT/HCPCS: 36415; 71010; 74020; 80048; 80053; 80076; 82150; 82550; 82553; 82947; 83690; 83735; 83880; 84484; 85025; 85027; 93005; 93306; 94640; 94760; 99285; J1650; J1815; J1940; J2405; J2550; J2765

== ENCOUNTER 2017-04-06 10:53 | Inpatient (IN) | payer MEDICARE ==
--- NOTE | ~2017-04-06 | HP ---
Unit #: [id number] #: [id number] Patient: TYLER ATWOOD [id number] [address] [address] [id number] I MR#: [id number] NAME: TYLER ATWOOD ROOM: 43578 Age: 61 Sex: F Admission Date: 04/06/2017 : 1955 Attending Physician: Igor Borjas M.D. Primary Care Physician: Beatris Garcia M.D. HISTORY AND PHYSICAL REASON FOR ADMISSION Decompensated heart failure/dyspnea. HISTORY OF PRESENT ILLNESS The patient is a 61-year-old female discharged from our hospital yesterday secondary to similar circumstance as well as dyspnea after a fairly prolonged hospital admission from 03/31/2017 to 04/05/2017 secondary to acute on chronic systolic/diastolic heart failure. She states that over the past 24 hours when she went home she had increased dyspnea. She was noted in the emergency room to be acutely hypoxic, was placed on BiPAP support and we are asked to admit her for further management. PAST MEDICAL HISTORY 1. Recent hospital admission secondary to acute on chronic systolic/diastolic heart failure. 2. 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 3. Prior history of TME. 4. Prior history of seizure disorder. 5. Ischemic cardiomyopathy, unclear ejection fraction. I do not have any records in the system but I believe both diastolic and systolic heart function exists. 6. Coronary artery disease. Prior history of stent placement. 7. Breast cancer status post right mastectomy. 8. Pleural effusion history. 9. Diabetes poorly controlled. 10. Hypertension. 11. Hypothyroidism. 12. GERD. 13. Seizure disorder. 14. Mild to moderate dementia. 15. Anxiety disorder. 16. Morbid obesity. 17. Prior history of bladder repair. 18. Prior history of total abdominal hysterectomy. 19. Open cholecystectomy. 20. Prior history of lumbar spine surgery. SOCIAL HISTORY The patient resides at home. No tobacco use. No alcohol use. She usually uses approximately two to four liters of O2. However, I am not sure if she was discharged on home O2 last hospital admission. Unit #: [id number] #: [id number] Patient: TYLER ATWOOD FAMILY HISTORY Reviewed, noncontributory, nonpertinent. ALLERGIES Liver oil, phenylephrine, petrolatum, cocoa butter, Bactrim, mercury, witch antonio, strawberries, Levemir. HOME MEDICATIONS 1. Plavix. 2. Lomotil. 3. Glucotrol. 4. Synthroid. 5. Vimpat. 6. Lipitor. 7. Lantus. 8. Aspirin. 9. Lopressor. 10. Ativan. 11. Zoloft. 12. Albuterol 3 mL nebulization four times daily. 13. Lasix. 14. Hydralazine. 15. Imdur. 16. Phenergan. 17. Reglan. 18. Protonix. 19. NovoLog. REVIEW OF SYSTEMS Please see HPI. A 12-point otherwise negative except for those positive and noted in the HPI. PHYSICAL EXAMINATION GENERAL APPEARANCE: A 61-year-old morbidly obese female using accessory muscles to breathe, currently on BiPAP support. VITAL SIGNS: Temperature 98.3. Pulse 82. Respiratory rate 26. Blood pressure 209/84. HEENT: Head exam: Atraumatic, normocephalic. Ear exam: Tympanic membranes do not reveal any erythema or injection. NECK: Supple. CARDIOVASCULAR: S1, S2. Tachycardiac without murmur. RESPIRATORY: Diminished and poor air exchange noted bilaterally. Bibasilar rales also noted. GASTROINTESTINAL/ABDOMEN: Distension noted. Nontender. LOWER EXTREMITIES: No evidence of any lower extremity calf tenderness, 1+ lower extremity edema noted. NEUROLOGIC: The patient is alert and oriented x3 currently. ER COURSE The patient received Lasix 40 mg IV times one, nitro paste as well as hydralazine 10 mg IV times one. DIAGNOSTIC STUDIES LABORATORY: Studies at time of admission include a BNP at 654, creatinine at 1.1. I note through chart review that in the past she has had difficulty with Lasix IV secondary to kidney issues. INR 1.0. ABG shows pCO2 of 46, pO2 of 85. Initial cardiac enzyme set negative. CBC shows hemoglobin 11.6, white count 10.5. Unit #: [id number] #: [id number] Patient: TYLER ATWOOD INITIAL ADMISSION DIAGNOSES 1. Acute hypoxic respiratory failure. 2. Dyspnea, multifactorial in origin. 3. Acute on chronic diastolic/systolic heart failure. 4. Morbid obesity. 5. Prior history of seizure disorder. 6. Depression. 7. Anxiety. 8. Diabetes with insulin dependence and poor compliance. 9. Chronic hypoxic respiratory failure, I believe COPD, followed by Dr. Wood. 10. Cardiomyopathy history. PLAN Admission telemetry floor. Consultation to Cardiology. Consultation to Pulmonary. IV diuresis as per Cardiology Services. Accu-Cheks q.a.c. and q.h.s. NovoLog sliding scale. Routine laboratory studies. The patient is FULL CODE. Further hospital course to follow. Overall, patient's chronic deconditioning as well as questionable compliance with this patient, long-term prognosis guarded at best. Currently, no family members are present at bedside. Dictated by Chidi Bello/riya TD: 04/06/2017 13:33 JOB #: [id number] HISTORY AND PHYSICAL Page 1 of 1 X Igor Borjas MD X HISTORY AND PHYSICAL
--- NOTE | ~2017-04-06 | CR72 ---
[facility] A Service of [facility] & [facility] RADIOLOGY TEXT RESULTS PATIENT: TYLER ATWOOD LOCATION: [place] [address] : [birth year] UNIT #: [id number] AGE: [address]: Haley Perez MD SEX: F ORDER DR: [id number] [facility] [address] [place], [place] [address] [id number] I MR#: [id number] Acc #: [id number] NAME: TYLER ATWOOD : 1955 SEX: F STUDY DATE/TIME: 04/07/2017 5:41 UNIT: [facility] ROOM: [facility] STUDY DESCRIPTION: CR Chest Single View Portable Attending Physician: Haley Perez M.D. Ordering Physician: Sera Wood M.D. Primary Care Physician: Beatris Garcia M.D. MEDICAL IMAGING REPORT This report is preliminary unless electronic signature is present EXAM Portable chest, 04/07. INDICATION Shortness of air and weakness for 2 days. History of breast cancer. FINDINGS AP portable chest compared with 04/06/2017. Heart size stable. Bilateral pleural effusions are larger. Diffuse infiltrates in both lungs are essentially stable allowing for slightly improved lung volumes today. No pneumothorax. Dictated by... Carlos Foster Jr., M.D. THIS IS AN ELECTRONICALLY VERIFIED REPORT Carlos Foster Jr., M.D. at 04/08/2017 6:05 AM LV/taj TD: 04/07/2017 10:34 JOB #: [id number] MEDICAL IMAGING REPORT Page 1 of 1 COPY
--- NOTE | ~2017-04-06 | CO ---
Unit #: [id number] #: [id number] Patient: TYLER ATWOOD [id number] [address] [address] [id number] I MR#: [id number] NAME: TYLER ATWOOD ROOM: 513[address] Age: 61 Sex: F Admission Date: 04/06/2017 : 1955 Attending Physician: Igor Brojas M.D. Primary Care Physician: Beatris Garcia M.D. CONSULTATION REPORT REASON FOR CONSULTATION Respiratory failure, critical care management. CHIEF COMPLAINT Shortness of breath. HISTORY OF PRESENT ILLNESS Patient, basically, is known to me from previous admission. Has a past medical history of cardiomyopathy, acute kidney injury, chronic kidney disease, type 2 diabetes, and seizure disorder. Presents with a complaint of shortness of breath. Found to be in pulmonary edema and respiratory failure. I am seeing her at the bedside. Currently on BiPAP. REVIEW OF SYSTEMS Positive for pallor. No edema. No cyanosis. No jaundice. Rest as per history of present illness. Rest of 12-point review of systems has been reviewed and is negative. PAST MEDICAL HISTORY Cardiomyopathy, acute kidney injury, coronary artery disease, diabetes mellitus, seizure disorder, and hepatitis. SOCIAL HISTORY Nonsmoker. No alcohol. No drug abuse. MEDICATIONS As per MAR. Has been reviewed. ALLERGIES Have been reviewed. DIAGNOSTIC STUDIES IMAGING: Chest x-ray: Bilateral pulmonary edema. LABORATORY: Blood gas: pH of 7.40, pCO2 45, and pO2 is 84. Creatinine 1.1. BNP 654. White count 10, hemoglobin 11, hematocrit 36, and platelet count 361. ASSESSMENT AND PLAN 1. Acute hypoxic hypercapnic respiratory failure. 2. Acute exacerbation of congestive heart failure. 3. Respiratory failure. 4. Obstructive sleep apnea. Unit #: [id number] #: [id number] Patient: TYLER ATWOOD PLAN To continue patient on current BiPAP setting. Add diuretics. Bronchodilator. GI/DVT prophylaxes. Troponin and cardiology consultation. Patient will be closely monitored. Please see orders for detailed plan. Thank you very much for this consultation. We will continue to follow. Dictated by... Sera Wood M.D. Janusz TD: 04/06/2017 14:19 JOB #: [id number] CONSULTATION REPORT Page 1 of 1 X Sera Wood MD CONSULTATION REPORT
--- NOTE | ~2017-04-06 | CR72 ---
[facility] A Service of [facility] RADIOLOGY TEXT RESULTS PATIENT: TYLER ATWOOD LOCATION: [address]3-18 : [birth year] UNIT #: [id number] AGE: [address]: Igor Borjas MD SEX: F ORDER DR: [id number] [facility] [address] [place], [place] [address] [id number] MR#: [id number] #: [id number] NAME: TYLER ATWOOD : 1955 SEX: F STUDY DATE/TIME: 04/06/2017 11:07 UNIT: [facility] ROOM: 31107 STUDY DESCRIPTION: CR Chest Single View Portable Attending Physician: Igor Borjas M.D. Ordering Physician: Colten Ventura M.D. Primary Care Physician: Beatris Garcia M.D. MEDICAL IMAGING REPORT This report is preliminary unless electronic signature is present EXAM Portable chest 04/06/2017 INDICATIONS Shortness of breath today. Comparison with 03/31/2017 FINDINGS Overall interval worsening of bilateral airspace infiltrates. Heart size stable. Atherosclerotic calcification of the aorta. IMPRESSION Overall interval worsening of bilateral airspace infiltrates. Dictated by... Moncho Arteaga M.D. THIS IS AN ELECTRONICALLY VERIFIED REPORT Moncho Arteaga M.D. at 04/07/2017 7:14 AM Veena TD: 04/06/2017 14:57 JOB #: [id number] MEDICAL IMAGING REPORT Page 1 of 1 COPY
--- NOTE | ~2017-04-06 | EKG ---
PATIENT: TYLER ATWOOD UNIT #: [id number] Ventricular Rate: 82 BPM Atrial Rate: 82 BPM QRS Duration: 106 ms Q-T Interval: 390 ms QTC Calculation(Bezet): 455 ms Calculated R [place]: 87 degrees Calculated T [place]: 24 degrees Diagnosis Line: Normal sinus rhythm Junctional rhythm Diagnosis Line: Nonspecific ST abnormality Diagnosis Line: Abnormal ECG Diagnosis Line: When compared with ECG of 31-MAR-2017 03:20, Diagnosis Line: Nonspecific T wave abnormality, worse in Inferior Diagnosis Line: leads Diagnosis Line: T wave amplitude has increased in Anterior leads Diagnosis Line: Confirmed by HARSHA SNOW MD ([id number]) on Diagnosis Line: 04/06/2017 2:04:42 PM INTERPRETING MD: EDY SALCEDO
--- NOTE | ~2017-04-06 | DS ---
Unit #: [id number] #: [id number] Patient: TYLER ATWOOD [id number] [place] [address] [id number] MR#: [id number] NAME: TYLER ATWOOD ROOM: [facility] Age: 61 Sex: F Admission Date: 04/06/2017 : 1955 Discharge Date: Attending Physician: Haley Perez M.D. Primary Care Physician: Beatris Garcia M.D. DISCHARGE SUMMARY DISCHARGE DIAGNOSES 1. Acute hypoxic respiratory failure. 2. Acute on chronic diastolic heart failure. 3. Acute kidney injury. 4. Hypertension. 5. Hyperlipidemia. 6. Diabetes mellitus type 2. 7. Coronary artery disease with history of stent. 8. Anemia, chronic iron deficiency. 9. Recent history of nausea and vomiting, likely secondary to gastritis, resolved. 10. Chronic kidney disease, stage 3. 11. Mild protein malnutrition. 12. History of seizures. 13. History of breast cancer status post mastectomy. 14. Hypothyroidism. 15. Gastroesophageal reflux disease. 16. Hypocalcemia. CONSULTATIONS 1. Dr. Wood. 2. Dr. Carson. PROCEDURES None. DIAGNOSTIC TESTING LAB DATA: Glucose 161, sodium 138, potassium 3.6, creatinine 1.3. WBC 7.4, hemoglobin 9.2, platelets 328. IMAGING: Chest x-ray shows diffuse infiltrates both lungs. ALLERGIES Multiple including phenylephrine, petrolatum, sulfamethoxazole, trimethoprim, mercury, Levemir. DISCHARGE MEDICATIONS 1. DuoNeb 3 mL inhalation q.i.d. p.r.n. shortness of breath. 2. Vimpat 100 p.o. b.i.d. 3. Zoloft 50 daily. 4. Loperamide 2 mg b.i.d. p.r.n. diarrhea. 5. Phenergan 12.5 q.8 p.r.n. nausea. 6. Atorvastatin 80 daily. Unit #: [id number] #: [id number] Patient: TYLER ATWOOD 7. Ativan 0.5 t.i.d. 8. Lopressor 25 p.o. b.i.d. 9. Bumex 1 mg p.o. b.i.d. 10. Hydralazine 25 t.i.d. 11. Lantus 55 units subcu at 10 p.m. 12. NovoLog low-dose sliding scale a.c. and h.s. 13. NovoLog 15 units subcu t.i.d. with meals. 14. Aspirin 81 daily. 15. Plavix 75 daily. 16. Protonix 40 daily. 17. Synthroid 25 mcg p.o. daily. 18. Imdur ER 30 daily. HOSPITALIZATION COURSE A 61 year old admitted with shortness of breath. Acute hypoxic respiratory failure. Currently I am going to check for home O2 eval. Acute on chronic diastolic heart failure. Patient received IV diuretics. Currently compensated. Continue with Bumex 1 mg p.o. b.i.d. Acute kidney injury. Most likely from CHF. Stable. Monitor while on Bumex. Hypoglycemia. Likely secondary to poor p.o. intake. Resolved. Diabetes mellitus type 2. Uncontrolled. Continue with insulin. Nausea, acute on chronic. Likely secondary to gastritis. The patient had EGD on previous admission, which showed gastric erosions. Acute hypercapnic, hypoxic respiratory failure. Patient refused BiPAP. Chronic iron deficiency anemia. DISCHARGE PLAN The patient will be discharged to rehab. NOTE: Discharge time take is 40 minutes. Dictated by... Chidi Patrick/sheila TD: 04/12/2017 15:21 JOB #: [id number] Unit #: [id number] #: [id number] Patient: TYLER ATWOOD DISCHARGE SUMMARY Page 1 of 1 X Haley Perez MD X DISCHARGE SUMMARY
[~2017-04-06 10:53] MED LIST changes: +IMDUR-ER30 M1 PO; +LASIX20 MG PO; +METFORMIN HCL500 M1 PO; +NOVOLOG100 UNIT/1 SUBQ; +PHENERGAN12.5 MG PO; +REGLAN5 MG PO
[2017-04-06 11:33] LABS: POC - CKMB 1.3 ng/mL (0.0-7.9); POC - TROPONIN <0.05 ng/mL (<=0.05)
[2017-04-06 11:47] LABS: BASOPHIL# 0.1 X10e3 (0-0.3); BASOPHIL% 0.7 % (0-2.5); EOSINOPHIL# 0.3 X10e3 (0-0.7); EOSINOPHIL% 3.3 % (0.0-7.0); HEMATOCRIT 36.6 % (35.0-45.0); LYMPHOCYTE# 2.5 X10e3 (1.0-3.5); LYMPHOCYTE% 23.4 % (17.0-45.0); MEAN CELL VOLUME 86.2 FL (83-96); MEAN CORPUSCULAR HEMOGLOBIN 27.4 PG (28-34); MEAN CORPUSCULAR HGB CONC 31.8 g/dL (30-36); MEAN PLATELET VOLUME 8.5 FL (6.5-11.5); MONOCYTE# 0.6 X10e3 (0-1.0); MONOCYTE% 5.4 % (3.0-12.0); NEUTROPHIL# 7.1 X10e3 (1.5-7.1); NEUTROPHIL% 67.2 % (40-75); PLATELET COUNT 361 X10e3 (140-420); RED BLOOD COUNT 4.25 X10e (3.90-5.30); RED CELL DISTRIBUTION WIDTH 14.5 % (11.0-15.5); WHITE BLOOD COUNT 10.5 X10e3 (4.0-10.5)
[2017-04-06 11:53] LABS: HEMOGLOBIN 11.6 gm/dL (12.0-16.0)
[2017-04-06 11:54] LABS: DIFF IND NO
[2017-04-06 12:03] LABS: PARTIAL THROMBOPLASTIN TIME 23.7 SECONDS (23.5-31.3)
[2017-04-06 12:05] LABS: ARTERIAL BLD GAS O2 SATURATION 95.5 % (90.0-100.0); ARTERIAL BLOOD GAS CARBOXY HB 1.3 %sat (0.0-9.0); ARTERIAL BLOOD GAS HCO3 28.7 mmol/L; ARTERIAL BLOOD GAS MET HB 0.7 %sat (0.0-2.0); ARTERIAL BLOOD GAS PCO2 45.9 mmHg (35.0-45.0); ARTERIAL BLOOD GAS PO2 84.3 mmHg (80.0-100); ARTERIAL BLOOD GAS pH 7.405 (7.350-7.450)
[2017-04-06 12:06] LABS: ARTERIAL DRAW? YES
[2017-04-06 12:07] LABS: ARTERIAL BLOOD GAS ART SITE LEFT RADIAL
[2017-04-06 12:18] LABS: ALBUMIN SERUM 3.2 g/dL (3.5-5.0); BILIRUBIN, DIRECT 0.1 mg/dL (0.0-0.2); BILIRUBIN,INDIRECT 0.4 mg/dL (0.0-0.9); BILIRUBIN,TOTAL 0.5 mg/dL (0.2-2.0); CALCIUM SERUM 8.4 mg/dL (8.4-10.2); CREATININE SERUM 1.1 mg/dL (0.6-1.4); GLOM FILT RATE Estimated 53.4 mL/min (>60); PROTEIN TOTAL SERUM 6.6 g/dL (6.0-8.3)
[2017-04-06] MEDS ORDERED: ALBUTEROL MININEB NEB (12:59)
[2017-04-06] MEDS ORDERED: ZOLOFT PO (12:59)
[2017-04-06] MEDS ORDERED: VIMPAT100 MG PO (12:59)
[2017-04-06] MEDS ORDERED: ATIVAN PO (13:00)
[2017-04-06] MEDS ORDERED: LOPRESSOR PO (13:00)
[2017-04-06] MEDS ORDERED: LOPERAMIDE HCL2 M1 PO (13:00)
[2017-04-06] MEDS ORDERED: APRESOLINE PO (13:01)
[2017-04-06] MEDS ORDERED: LASIX20 MG PO (13:01)
[2017-04-06] MEDS ORDERED: LIPITOR80 MG PO (13:01)
[2017-04-06] MEDS ORDERED: LASIX PO (13:01)
[2017-04-06] MEDS ORDERED: LANTUS SOL100 UNIT/1 SUBQ (13:02)
[2017-04-06] MEDS ORDERED: NOVOLOG FL100 UNIT/1 (13:05)
[2017-04-06] MEDS ORDERED: NOVOLOG FL100 UNIT/1 SUBQ (13:05)
[2017-04-06] MEDS ORDERED: CLOPIDOGREL75 MG PO (13:06)
[2017-04-06] MEDS ORDERED: GLUCOTROL XL5 M1 PO (13:06)
[2017-04-06] MEDS ORDERED: ASPIRIN81 M2 PO (13:06)
[2017-04-06] MEDS ORDERED: IMDUR PO (13:06)
[2017-04-06] MEDS ORDERED: REGLAN PO (13:06)
[2017-04-06] MEDS ORDERED: PROTONIX PO (13:06)
[2017-04-06] MEDS ORDERED: PHENERGAN PO (13:08)
[2017-04-06] MEDS ORDERED: SYNTHROID25 MCG PO (13:10)
[2017-04-06 19:45] LABS: CK TOTAL 41 IU/L (26-140)
[2017-04-06 20:14] LABS: P2Y12 INHIB (PFAPLAVIX) 228 PRU (())
[2017-04-07 01:41] LABS: CK TOTAL 48 IU/L (26-140)
[2017-04-07 05:05] LABS: ARTERIAL BLOOD GAS CARBOXY HB 0.7 %sat (0.0-9.0); ARTERIAL BLOOD GAS HCO3 29.5 mmol/L; ARTERIAL BLOOD GAS MET HB 0.7 %sat (0.0-2.0); ARTERIAL BLOOD GAS PCO2 32.2 mmHg (35.0-45.0); ARTERIAL BLOOD GAS pH 7.571 (7.350-7.450)
[2017-04-07 05:06] LABS: ARTERIAL BLOOD GAS ALLEN TEST NORMAL; ARTERIAL BLOOD GAS ART SITE LEFT RADIAL; ARTERIAL BLOOD GAS DELIVERY BIPAP 14/4; ARTERIAL DRAW? YES
[2017-04-07 06:44] LABS: HEMATOCRIT 32.1 % (35.0-45.0); HEMOGLOBIN 10.5 gm/dL (12.0-16.0); MEAN CELL VOLUME 84.9 FL (83-96); MEAN CORPUSCULAR HEMOGLOBIN 27.7 PG (28-34); MEAN CORPUSCULAR HGB CONC 32.6 g/dL (30-36); MEAN PLATELET VOLUME 7.9 FL (6.5-11.5); RED BLOOD COUNT 3.78 X10e (3.90-5.30); RED CELL DISTRIBUTION WIDTH 14.3 % (11.0-15.5)
[2017-04-07 07:16] LABS: ALBUMIN SERUM 2.6 g/dL (3.5-5.0); BILIRUBIN,TOTAL 0.9 mg/dL (0.2-2.0); CALCIUM SERUM 8.5 mg/dL (8.4-10.2); GLOM FILT RATE Estimated 59.9 mL/min (>60); POTASSIUM 3.3 mmol/L (3.5-5.1); PROTEIN TOTAL SERUM 5.4 g/dL (6.0-8.3)
[2017-04-07 10:31] LABS: ARTERIAL BLD GAS O2 SATURATION >100.0 % (90.0-100.0)
[2017-04-08 07:02] LABS: BUN/CREATININE RATIO 16.25; CALCIUM SERUM 8.4 mg/dL (8.4-10.2); CREATININE SERUM 1.6 mg/dL (0.6-1.4); POTASSIUM 4.2 mmol/L (3.5-5.1)
[2017-04-09 06:33] LABS: HEMATOCRIT 27.9 % (35.0-45.0); HEMOGLOBIN 8.9 gm/dL (12.0-16.0); MEAN CELL VOLUME 85.2 FL (83-96); MEAN CORPUSCULAR HEMOGLOBIN 27.1 PG (28-34); MEAN CORPUSCULAR HGB CONC 31.9 g/dL (30-36); MEAN PLATELET VOLUME 7.7 FL (6.5-11.5); RED BLOOD COUNT 3.28 X10e (3.90-5.30); WHITE BLOOD COUNT 8.2 X10e3 (4.0-10.5)
[2017-04-09 06:47] LABS: CALCIUM SERUM 8.1 mg/dL (8.4-10.2); CREATININE SERUM 1.5 mg/dL (0.6-1.4); GLOM FILT RATE Estimated 36.7 mL/min (>60); POTASSIUM 4.2 mmol/L (3.5-5.1)
[2017-04-09 15:55] LABS: IRON SERUM 29 ug/dL (28-170); TOTAL IRON BINDING CAPACITY 253 ug/dL (269-535); TRANSFERRIN 181 mg/dL (192-382); TRANSFERRIN SATURATION 11 % (20-50)
[2017-04-10 06:15] LABS: BUN/CREATININE RATIO 23.57; CALCIUM SERUM 8.1 mg/dL (8.4-10.2); CREATININE SERUM 1.4 mg/dL (0.6-1.4); GLOM FILT RATE Estimated 39.9 mL/min (>60); POTASSIUM 4.3 mmol/L (3.5-5.1)
[2017-04-11 06:04] LABS: HEMOGLOBIN 9.3 gm/dL (12.0-16.0); MEAN CELL VOLUME 86.3 FL (83-96); MEAN CORPUSCULAR HEMOGLOBIN 27.8 PG (28-34); MEAN CORPUSCULAR HGB CONC 32.2 g/dL (30-36); MEAN PLATELET VOLUME 7.9 FL (6.5-11.5); RED BLOOD COUNT 3.36 X10e (3.90-5.30); RED CELL DISTRIBUTION WIDTH 14.7 % (11.0-15.5); WHITE BLOOD COUNT 8.4 X10e3 (4.0-10.5)
[2017-04-11 06:53] LABS: BUN/CREATININE RATIO 24.61; CALCIUM SERUM 8.1 mg/dL (8.4-10.2); CREATININE SERUM 1.3 mg/dL (0.6-1.4); GLOM FILT RATE Estimated 43.6 mL/min (>60)
[2017-04-12 05:52] LABS: HEMATOCRIT 28.5 % (35.0-45.0); HEMOGLOBIN 9.2 gm/dL (12.0-16.0); MEAN CELL VOLUME 86.6 FL (83-96); MEAN CORPUSCULAR HEMOGLOBIN 27.8 PG (28-34); MEAN CORPUSCULAR HGB CONC 32.2 g/dL (30-36); MEAN PLATELET VOLUME 7.6 FL (6.5-11.5); RED BLOOD COUNT 3.29 X10e (3.90-5.30); RED CELL DISTRIBUTION WIDTH 14.7 % (11.0-15.5); WHITE BLOOD COUNT 7.4 X10e3 (4.0-10.5)
[2017-04-12 06:21] LABS: BUN/CREATININE RATIO 23.07; CALCIUM SERUM 8.3 mg/dL (8.4-10.2); CREATININE SERUM 1.3 mg/dL (0.6-1.4); GLOM FILT RATE Estimated 43.6 mL/min (>60); POTASSIUM 3.6 mmol/L (3.5-5.1)
== END 2017-04-12 21:49 | DRG 291 ==
LOC: CED 10:53 → CEDOF 13:00 → CED 13:27 → CICCU3 13:27 → CEDOF 13:27 → CICCU3 21:30 → CEDOF 21:30 → CICCU3 04-07 07:48 → C5B 04-07 16:59
PROVIDERS: Emergency Medicine; Family Medicine; Internal Medicine; Internal Medicine Cardiovascular Disease; Nurse Practitioner
DX: I13.0 Hypertensive heart and chronic kidney disease with heart failure and stage 1 through stage 4 chronic kidney disease, or unspecified chronic kidney disease (principal); I50.43 Acute on chronic combined systolic (congestive) and diastolic (congestive) heart failure; J96.21 Acute and chronic respiratory failure with hypoxia; F03.90 Unspecified dementia, unspecified severity, without behavioral disturbance, psychotic disturbance, mood disturbance, and anxiety; J96.22 Acute and chronic respiratory failure with hypercapnia; N17.9 Acute kidney failure, unspecified; E44.1 Mild protein-calorie malnutrition; I42.9 Cardiomyopathy, unspecified; E11.22 Type 2 diabetes mellitus with diabetic chronic kidney disease; N18.3 Chronic kidney disease, stage 3 (moderate); E66.01 Morbid (severe) obesity due to excess calories; G40.909 Epilepsy, unspecified, not intractable, without status epilepticus; F32.9 Major depressive disorder, single episode, unspecified; F41.9 Anxiety disorder, unspecified; Z79.4 Long term (current) use of insulin; J44.9 Chronic obstructive pulmonary disease, unspecified; Z86.73 Personal history of transient ischemic attack (TIA), and cerebral infarction without residual deficits; I25.10 Atherosclerotic heart disease of native coronary artery without angina pectoris; Z95.5 Presence of coronary angioplasty implant and graft; Z85.3 Personal history of malignant neoplasm of breast; E03.9 Hypothyroidism, unspecified; K21.9 Gastro-esophageal reflux disease without esophagitis; Z90.710 Acquired absence of both cervix and uterus; Z90.49 Acquired absence of other specified parts of digestive tract; Z91.018 Allergy to other foods; Z79.82 Long term (current) use of aspirin; Z91.14 Patient's other noncompliance with medication regimen; G47.33 Obstructive sleep apnea (adult) (pediatric); E87.6 Hypokalemia; D50.9 Iron deficiency anemia, unspecified; E11.649 Type 2 diabetes mellitus with hypoglycemia without coma; Z68.32 Body mass index [BMI] 32.0-32.9, adult; K29.70 Gastritis, unspecified, without bleeding; Z88.2 Allergy status to sulfonamides
CPT/HCPCS: 36415; 36600; 71010; 80048; 80053; 80076; 82550; 82553; 82728; 82803; 82947; 83540; 83550; 83735; 83880; 84132; 84484; 85025; 85027; 85576; 85610; 85730; 93005; 94640; 94660; 94760; 96374; 97110; 97116; 97161; 97165; 97530; 99291; G8978-GP; G8979-GP; G8987-GO; G8988-GO; G8989-GO; J1650; J1815; J1940; J3475